=== PATIENT | female | born 1960 | race Hispanic/Latino ===

== ENCOUNTER → 2021-09-07 | Outpatient (CLI) | payer MEDICARE | END | disposition home or self-care (01) | LOC: EDUNIT# 08-24 11:00 → RAH 14:38 | PROVIDERS: ATTEND Internal Medicine | DX: Z12.31 Encounter for screening mammogram for malignant neoplasm of breast (principal) | CPT/HCPCS: 77067 ==

== ENCOUNTER → 2022-01-27 | Outpatient (CLI) | payer MEDICARE | END | disposition home or self-care (01) | LOC: RAH 13:03 | PROVIDERS: ATTEND Internal Medicine | DX: E04.1 Nontoxic single thyroid nodule (principal) | CPT/HCPCS: 76536 ==

== ENCOUNTER 2022-04-29 14:31 | Emergency (ER) | payer MEDICARE ==
[~2022-04-29] VITALS: Ht 160 cm; Wt 88.5 kg
[2022-04-29 14:32] VITALS: BP 154/63
[2022-04-29] MEDS ORDERED: HYDROCODONE/ACETAMINOPHEN 10/325 MG TAB PO ONE (15:00)
[2022-04-29] MEDS ORDERED: KETOROLAC 60 MG VIAL (30MG/ML) IM ONE (15:00)
[2022-04-29] MEDS ORDERED: TRAM1TAB2 PO (16:07)
[2022-04-29] MEDS ORDERED: TETANUS/DIPHTHERIA TOXOID [ADULT] 0.5 ML VIAL IM ONE (16:30)
== END 2022-04-29 17:04 | disposition home or self-care (01) ==
LOC: EDH 14:31
DX: S42.201A Unspecified fracture of upper end of right humerus, initial encounter for closed fracture (principal); S52.124A Nondisplaced fracture of head of right radius, initial encounter for closed fracture; F32.A Depression, unspecified; E11.9 Type 2 diabetes mellitus without complications; E78.00 Pure hypercholesterolemia, unspecified; I10 Essential (primary) hypertension; E66.9 Obesity, unspecified; Z68.34 Body mass index [BMI] 34.0-34.9, adult; Z90.49 Acquired absence of other specified parts of digestive tract; W19.XXXA Unspecified fall, initial encounter; Y93.89 Activity, other specified; Y92.89 Other specified places as the place of occurrence of the external cause; Y99.8 Other external cause status
CPT/HCPCS: 99284; 90714; 73080; 73090; 73060; 73030; 96372; 90471; J1885

== ENCOUNTER 2022-06-27 17:00 | Observation (INO) | payer MEDICARE ==
[~2022-06-27] VITALS: Ht 149.9 cm; Wt 89.1 kg
[~2022-06-27 17:00] MED LIST: TRAM1TAB2 PO
[2022-06-27 17:37] LABS: BASOPHILS % (AUTO) 0.2 % (0.0-5.0); EOSINOPHILS % (AUTO) 0.3 % (0.0-8.0); LYMPHOCYTES % (AUTO) 16.6 % (21.0-51.0); MEAN CORPUSCULAR HEMOGLOBIN 30.3 pg (27.0-33.0); MEAN CORPUSCULAR HGB CONC 34.1 g/dL (32.0-36.0); MEAN CORPUSCULAR VOLUME 88.9 fL (79-99); MONOCYTES % (AUTO) 6.7 % (3.0-13.0); NEUTROPHILS % (AUTO) 75.8 % (40.0-77.0); PLATELET COUNT (AUTO) 144 K/uL (130-400); RED CELL DISTRIBUTION WIDTH 13.7 % (11.0-15.5)
[2022-06-27 17:47] LABS: POTASSIUM 4.2 mmol/L (3.5-5.1)
[2022-06-27 17:54] LABS: ALBUMIN 3.4 g/dL (3.5-5.0); TOTAL PROTEIN, SERUM 7.6 g/dL (6.0-8.3)
[2022-06-27] MEDS ORDERED: FAMOTIDINE 20MG VIAL IV ONE (18:00)
[2022-06-27] MEDS ORDERED: MORPHINE 2 MG SYG IVP ONE (18:00)
[2022-06-27] MEDS ORDERED: 0.9%NACL 1000ML 1,000 ML IV ONE ×2 (18:00→19:30)
[2022-06-27] MEDS ORDERED: ONDANSETRON 4MG INJ IVP ONE (18:00)
[2022-06-27 18:37] LABS: INR 1.06 (0.85-1.15); PROTHROMBIN TIME 11.5 SEC (9.6-11.6)
[2022-06-27 18:38] LABS: PARTIAL THROMBOPLASTIN TIME 28.3 SEC (26.3-35.5)
[2022-06-27] MEDS ORDERED: LACTULOSE 20 GM/30 ML UDCUP PO ONE (19:00)
[2022-06-27 20:09] LABS: APPEARANCE,URINE CLEAR (CLEAR); BILIRUBIN,URINE NEGATIVE (NEGATIVE); COLOR,URINE LIGHT-YELLOW (YELLOW); GLUCOSE, URINE (UA) NEGATIVE (NEGATIVE); KETONES,URINE NEGATIVE (NEGATIVE); LEUKOCYTE ESTERASE ,URINE NEGATIVE Leu/uL (NEGATIVE); NITRATE,URINE NEGATIVE (NEGATIVE); OCCULT BLOOD,URINE NEGATIVE (NEGATIVE); PROTEIN,URINE NEGATIVE (NEGATIVE); UROBILINOGEN,URINE 0.2 mg/dL (0.2-1.0)
[2022-06-27 20:11] LABS: MUCUS,URINE RARE LPF (None Seen); RBC,URINE 0-1 /HPF (0-1); SQUAMOUS EPITHELIAL CELL,UR FEW /HPF (0-2); WBC,URINE 0-1 /HPF (0-1)
[2022-06-27] MEDS ORDERED: ONDANSETRON 4MG INJ IVP PRN (21:00)
[2022-06-27] MEDS: LACTULOSE 20 GM/30 ML UDCUP PO SCH (21:00)
[2022-06-27] MEDS: 0.9%NACL 1000ML 1,000 ML IV SCH (21:20)
[2022-06-27] MEDS ORDERED: POLY17PO4 PO (21:22)
[2022-06-27] MEDS ORDERED: SIMV-43 PO (21:22)
[2022-06-27] MEDS ORDERED: SERT-440 PO (21:22)
[2022-06-27] MEDS ORDERED: DOCU240C25 PO ×2 (21:22→21:24)
[2022-06-27] MEDS ORDERED: FAMO40TA7 PO (21:22)
[2022-06-27] MEDS ORDERED: TRAM50TA4 PO (21:22)
[2022-06-27] MEDS ORDERED: FLUT16H NS (21:22)
[2022-06-27] MEDS ORDERED: INSU200I4 SQ (21:22)
[2022-06-27] MEDS ORDERED: AMLO-258 PO (21:22)
[2022-06-27] MEDS ORDERED: PANT40GR PO (21:22)
[2022-06-27] MEDS ORDERED: SEMA1PEN3 SQ (21:22)
[2022-06-27] MEDS ORDERED: FOLI0.8C PO (21:22)
[2022-06-27] MEDS ORDERED: FERR-72 PO (21:22)
[2022-06-27] MEDS ORDERED: MAG/ALUM/SIMETH 30 ML UDCUP PO PRN (22:00)
[2022-06-27] MEDS ORDERED: 0.9%NACL 1000ML 1,000 ML IV SCH (22:00)
[2022-06-27] MEDS ORDERED: GLUCAGON 1MG KIT 1 MG ML IM PRN (22:00)
[2022-06-27] MEDS ORDERED: DEXTROSE 50%-WATER 50 ML DISP.SYRIN IV PRN (22:00)
[2022-06-27] MEDS ORDERED: POTASSIUM CHLORIDE 10MEQ/100ML 100 ML IV PRN ×2 (22:00)
[2022-06-27] MEDS ORDERED: MORPHINE 2 MG SYG IVP PRN (22:00)
[2022-06-27] MEDS ORDERED: POTASSIUM CHLORIDE 10% ELIXIR 20 MEQ/15 ML UDCUP PO PRN (22:00)
[2022-06-27] MEDS ORDERED: DiphenhydrAMINE HCL 50 MG/ML VIAL IV PRN (22:00)
[2022-06-27] MEDS ORDERED: KCL 20 MEQ ERTAB PO PRN (22:00)
[2022-06-27] MEDS ORDERED: ACETAMINOPHEN 325 MG TAB PO PRN (22:00)
[2022-06-27] MEDS ORDERED: MORPHINE 4 MG SYG IVP PRN (22:00)
[2022-06-27] MEDS ORDERED: LIDOCAINE HCL-MPF 1% 2ML VIAL IV PRN ×2 (22:00)
[2022-06-27] MEDS ORDERED: DIPHENHYDRAMINE HCL 25 MG CAPSULE PO PRN (22:00)
[2022-06-28] MEDS: LACTULOSE 20 GM/30 ML UDCUP PO SCH ×4 (03:28→21:11)
[2022-06-28 05:00] VITALS: BP 165/71
[2022-06-28] MEDS: INSULIN HUMULIN R 100 UNIT/ML 3ML SQ SCH ×4 (06:23→21:12)
[2022-06-28] MEDS: 0.9%NACL 1000ML 1,000 ML IV SCH ×2 (06:23→17:57)
[2022-06-28 06:24] LABS: BASOPHILS % (AUTO) 0.3 % (0.0-5.0); EOSINOPHILS % (AUTO) 0.5 % (0.0-8.0); HEMATOCRIT 31.1 % (36-48); LYMPHOCYTES % (AUTO) 23.2 % (21.0-51.0); MEAN CORPUSCULAR HEMOGLOBIN 30.8 pg (27.0-33.0); MEAN CORPUSCULAR HGB CONC 34.4 g/dL (32.0-36.0); MEAN CORPUSCULAR VOLUME 89.6 fL (79-99); MONOCYTES % (AUTO) 9.3 % (3.0-13.0); NEUTROPHILS % (AUTO) 66.4 % (40.0-77.0); PLATELET COUNT (AUTO) 110 K/uL (130-400); RED BLOOD CELL COUNT(AUTO) 3.47 MIL/uL (4.00-5.50); RED CELL DISTRIBUTION WIDTH 13.7 % (11.0-15.5); WHITE BLOOD COUNT (AUTO) 5.8 K/uL (4.8-10.8)
[2022-06-28] MEDS: INSULIN GLARGINE 100 UNITS/ML 10 ML VIAL SQ SCH ×2 (06:24→21:13)
[2022-06-28 06:37] LABS: ALBUMIN 3.1 g/dL (3.5-5.0); CREATININE 1.6 mg/dL (0.5-1.5); POTASSIUM 4.1 mmol/L (3.5-5.1); TOTAL PROTEIN, SERUM 7.1 g/dL (6.0-8.3)
[2022-06-28 07:55] VITALS: BP 133/74
[2022-06-28] MEDS: RIFAXIMIN 550 MG TABLET PO SCH ×2 (08:33→21:11)
[2022-06-28] MEDS ORDERED: FAMOTIDINE 20MG VIAL IV SCH (09:00)
[2022-06-28 11:03] VITALS: BP 129/73
[2022-06-28] MEDS: PANTOPRAZOLE 40 MG TAB DR PO SCH (14:57)
[2022-06-28 15:33] VITALS: BP 107/65
[2022-06-28 20:25] VITALS: BP 136/74
[2022-06-28] MEDS: ACETAMINOPHEN 325 MG TAB PO PRN (23:14)
[2022-06-28 23:25] VITALS: BP 130/68
[2022-06-29] MEDS: LACTULOSE 20 GM/30 ML UDCUP PO SCH ×3 (02:33→15:02)
[2022-06-29 03:52] VITALS: BP 137/69
[2022-06-29 04:59] LABS: HEMATOCRIT 29.2 % (36-48); MEAN CORPUSCULAR HEMOGLOBIN 30.7 pg (27.0-33.0); MEAN CORPUSCULAR HGB CONC 33.9 g/dL (32.0-36.0); MEAN CORPUSCULAR VOLUME 90.7 fL (79-99); RED BLOOD CELL COUNT(AUTO) 3.22 MIL/uL (4.00-5.50); RED CELL DISTRIBUTION WIDTH 13.4 % (11.0-15.5); WHITE BLOOD COUNT (AUTO) 6.5 K/uL (4.8-10.8)
[2022-06-29 05:09] LABS: CREATININE 1.5 mg/dL (0.5-1.5)
[2022-06-29] MEDS: INSULIN HUMULIN R 100 UNIT/ML 3ML SQ SCH ×2 (06:35→12:00)
[2022-06-29] MEDS: INSULIN GLARGINE 100 UNITS/ML 10 ML VIAL SQ SCH (07:30)
[2022-06-29 07:54] VITALS: BP 145/74
[2022-06-29] MEDS: RIFAXIMIN 550 MG TABLET PO SCH (08:51)
[2022-06-29] MEDS: PANTOPRAZOLE 40 MG TAB DR PO SCH (08:51)
[2022-06-29 10:24] VITALS: BP 140/61
[2022-06-29] MEDS ORDERED: INSU200I4 SQ (14:21)
[2022-06-29] MEDS ORDERED: AMLO-258 PO (14:21)
[2022-06-29] MEDS ORDERED: RIFA550T PO (14:26)
[2022-06-29] MEDS ORDERED: LACT10SO5 PO (14:26)
[2022-06-29] MEDS: ACETAMINOPHEN 325 MG TAB PO PRN (15:02)
[2022-06-29 15:27] VITALS: BP 134/91
== END 2022-06-29 18:35 | disposition home or self-care (01) ==
LOC: EDH 17:00 → EDHIP 20:46 → 3CH 06-28 04:25
PROVIDERS: ADMIT Internal Medicine; ATTEND Internal Medicine
DX: E86.0 Dehydration (principal); E11.65 Type 2 diabetes mellitus with hyperglycemia; I12.9 Hypertensive chronic kidney disease with stage 1 through stage 4 chronic kidney disease, or unspecified chronic kidney disease; E11.22 Type 2 diabetes mellitus with diabetic chronic kidney disease; N18.30 Chronic kidney disease, stage 3 unspecified; D63.1 Anemia in chronic kidney disease; E78.2 Mixed hyperlipidemia; K21.9 Gastro-esophageal reflux disease without esophagitis; E66.01 Morbid (severe) obesity due to excess calories; F32.0 Major depressive disorder, single episode, mild; K74.60 Unspecified cirrhosis of liver; I85.00 Esophageal varices without bleeding; K76.6 Portal hypertension; M19.90 Unspecified osteoarthritis, unspecified site; D61.818 Other pancytopenia; G25.0 Essential tremor; E78.00 Pure hypercholesterolemia, unspecified; D50.9 Iron deficiency anemia, unspecified; E04.1 Nontoxic single thyroid nodule; K76.82 Hepatic encephalopathy; K85.90 Acute pancreatitis without necrosis or infection, unspecified; N17.0 Acute kidney failure with tubular necrosis; Z79.4 Long term (current) use of insulin; Z79.899 Other long term (current) drug therapy; Z90.49 Acquired absence of other specified parts of digestive tract; Z68.39 Body mass index [BMI] 39.0-39.9, adult; Z96.611 Presence of right artificial shoulder joint
CPT/HCPCS: 96374; 96361 ×2; 96375 ×2; 99285; 84484; 80053 ×2; 82140 ×3; 83690 ×3; 85025 ×2; 85610; 85730; 87040 ×2; 87088; 81001; 36415 ×3; 71045; 74176; 93005; 96376; 82948 ×9; 97161; 97039 ×3; 80048; 85027; G0378 ×44; J3490 ×2; J7030 ×2; J2405 ×2; J1815 ×2; J7070; J2270

== ENCOUNTER → 2022-07-10 | Outpatient (CLI) | payer MEDICARE ==
[~2022-07-10] MED LIST changes: +AMLO-258 PO; +DOCU240C25 PO; +FAMO40TA7 PO; +FERR-72 PO; +FLUT16H NS; +FOLI0.8C PO; +INSU200I4 SQ; +LACT10SO5 PO; +PANT40GR PO; +POLY17PO4 PO; +RIFA550T PO; +SEMA1PEN3 SQ; +SERT-440 PO; +SIMV-43 PO; -TRAM1TAB2 PO
== END | disposition home or self-care (01) ==
LOC: LAB 08:01
PROVIDERS: ATTEND Internal Medicine
DX: K74.60 Unspecified cirrhosis of liver (principal)
CPT/HCPCS: 36415; 82140

== ENCOUNTER → 2022-08-31 | Outpatient (CLI) | payer MEDICARE ==
[2022-08-31 09:23] LABS: BASOPHILS % (AUTO) 0.4 % (0.0-5.0); EOSINOPHILS % (AUTO) 1.5 % (0.0-8.0); HEMATOCRIT 27.6 % (36-48); LYMPHOCYTES % (AUTO) 23.5 % (21.0-51.0); MEAN CORPUSCULAR VOLUME 84.9 fL (79-99); MONOCYTES % (AUTO) 5.8 % (3.0-13.0); NEUTROPHILS % (AUTO) 68.6 % (40.0-77.0); PLATELET COUNT (AUTO) 110 K/uL (130-400); RED BLOOD CELL COUNT(AUTO) 3.25 MIL/uL (4.00-5.50); RED CELL DISTRIBUTION WIDTH 13.8 % (11.0-15.5); WHITE BLOOD COUNT (AUTO) 5.2 K/uL (4.8-10.8)
[2022-08-31 09:31] LABS: HEMOGLOBIN A1C 10.4 % (4.0-6.0)
[2022-08-31 09:33] LABS: INR 1.04 (0.85-1.15); PROTHROMBIN TIME 11.3 SEC (9.6-11.6)
[2022-08-31 09:34] LABS: PARTIAL THROMBOPLASTIN TIME 29.3 SEC (26.3-35.5)
[2022-08-31 09:45] LABS: ALBUMIN 3.2 g/dL (3.5-5.0); CREATININE 1.3 mg/dL (0.5-1.5); POTASSIUM 3.9 mmol/L (3.5-5.1); THYROID STIMULATING HORMONE 1.88 uIU/mL (0.36-3.74); TOTAL PROTEIN, SERUM 7.2 g/dL (6.0-8.3)
[2022-08-31 09:45] LABS: APPEARANCE,URINE CLOUDY (CLEAR); BILIRUBIN,URINE NEGATIVE (NEGATIVE); COLOR,URINE YELLOW (YELLOW); GLUCOSE, URINE (UA) >=1000 mg/dL (NEGATIVE); KETONES,URINE NEGATIVE (NEGATIVE); LEUKOCYTE ESTERASE ,URINE 250 Leu/uL (NEGATIVE); NITRATE,URINE NEGATIVE (NEGATIVE); OCCULT BLOOD,URINE NEGATIVE (NEGATIVE); PROTEIN,URINE 30 mg/dL (NEGATIVE)
[2022-08-31 10:05] LABS: BACTERIA,URINE FEW /HPF (None Seen); MUCUS,URINE RARE LPF (None Seen); RBC,URINE 0-1 /HPF (0-1); SQUAMOUS EPITHELIAL CELL,UR MOD /HPF (0-2); WBC,URINE 26-50 /HPF (0-1)
== END | disposition home or self-care (01) ==
LOC: LAB 08:37
PROVIDERS: ATTEND Internal Medicine
DX: I12.9 Hypertensive chronic kidney disease with stage 1 through stage 4 chronic kidney disease, or unspecified chronic kidney disease (principal); K21.9 Gastro-esophageal reflux disease without esophagitis; E78.2 Mixed hyperlipidemia; I85.00 Esophageal varices without bleeding; D61.818 Other pancytopenia; D69.6 Thrombocytopenia, unspecified; K74.60 Unspecified cirrhosis of liver; D50.9 Iron deficiency anemia, unspecified; E11.43 Type 2 diabetes mellitus with diabetic autonomic (poly)neuropathy; Z79.899 Other long term (current) drug therapy
CPT/HCPCS: 36415; 80053; 81001; 82043; 83036; 84443; 85025; 85610; 85730; 87088

== ENCOUNTER 2022-10-09 19:41 | Emergency (ER) | payer MEDICARE ==
[~2022-10-09] VITALS: Ht 157.5 cm; Wt 88.5 kg
[2022-10-09 22:24] LABS: BASOPHILS % (AUTO) 0.3 % (0.0-5.0); EOSINOPHILS % (AUTO) 0.6 % (0.0-8.0); HEMATOCRIT 24.9 % (36-48); LYMPHOCYTES % (AUTO) 20.1 % (21.0-51.0); MEAN CORPUSCULAR HEMOGLOBIN 34.6 pg (27.0-33.0); MEAN CORPUSCULAR HGB CONC 36.9 g/dL (32.0-36.0); MEAN CORPUSCULAR VOLUME 93.6 fL (79-99); MONOCYTES % (AUTO) 6.5 % (3.0-13.0); NEUTROPHILS % (AUTO) 72.1 % (40.0-77.0); PLATELET COUNT (AUTO) 122 K/uL (130-400); RED BLOOD CELL COUNT(AUTO) 2.66 MIL/uL (4.00-5.50); WHITE BLOOD COUNT (AUTO) 7.3 K/uL (4.8-10.8)
[2022-10-09 22:34] LABS: CREATININE 1.9 mg/dL (0.5-1.5); POTASSIUM 3.6 mmol/L (3.5-5.1)
[2022-10-09 22:39] LABS: ALBUMIN 3.4 g/dL (3.5-5.0); TOTAL PROTEIN, SERUM 7.5 g/dL (6.0-8.3)
[2022-10-09 22:39] LABS: APPEARANCE,URINE CLEAR (CLEAR); BILIRUBIN,URINE NEGATIVE (NEGATIVE); GLUCOSE, URINE (UA) NEGATIVE (NEGATIVE); KETONES,URINE NEGATIVE (NEGATIVE); LEUKOCYTE ESTERASE ,URINE NEGATIVE Leu/uL (NEGATIVE); NITRATE,URINE NEGATIVE (NEGATIVE); OCCULT BLOOD,URINE NEGATIVE (NEGATIVE); PH,URINE 6.5 (5.0-8.0); PROTEIN,URINE NEGATIVE (NEGATIVE); UROBILINOGEN,URINE 0.2 mg/dL (0.2-1.0)
[2022-10-09 22:43] LABS: COLOR,URINE Light-Yellow (YELLOW)
[2022-10-09] MEDS ORDERED: 0.9%NACL 1000ML 1,000 ML IV ONE (23:30)
[2022-10-10 00:54] VITALS: BP 135/61
== END 2022-10-10 01:23 | disposition home or self-care (01) ==
LOC: EDH 19:41
DX: R51.9 Headache, unspecified (principal); E11.9 Type 2 diabetes mellitus without complications; E66.9 Obesity, unspecified; E78.00 Pure hypercholesterolemia, unspecified; I10 Essential (primary) hypertension; R42 Dizziness and giddiness; Z79.4 Long term (current) use of insulin; Z79.899 Other long term (current) drug therapy; Z90.49 Acquired absence of other specified parts of digestive tract; Z68.35 Body mass index [BMI] 35.0-35.9, adult
CPT/HCPCS: 99285; 84484; 80053; 85025; 81003; 36415; 71045; 70450; 96360; 96361; 93005; J7030

== ENCOUNTER → 2022-11-17 | Outpatient (CLI) | payer MEDICARE | END | disposition home or self-care (01) | LOC: RAH 09:52 | PROVIDERS: ATTEND Internal Medicine | DX: E04.1 Nontoxic single thyroid nodule (principal) | CPT/HCPCS: 76536 ==

== ENCOUNTER → 2022-12-28 | Outpatient (CLI) | payer MEDICARE | END | disposition home or self-care (01) | LOC: RAH 14:20 | PROVIDERS: ATTEND Internal Medicine | DX: Z12.31 Encounter for screening mammogram for malignant neoplasm of breast (principal) | CPT/HCPCS: 77067 ==

== ENCOUNTER → 2023-06-25 | Outpatient (CLI) | payer MEDICARE | END | disposition home or self-care (01) | LOC: RAH 14:47 | PROVIDERS: ATTEND Internal Medicine | DX: R05.3 Chronic cough (principal) | CPT/HCPCS: 71047 ==

== ENCOUNTER → 2024-03-25 | Outpatient (CLI) | payer MEDICARE | END | disposition home or self-care (01) | LOC: RAH 16:40 | PROVIDERS: ATTEND Internal Medicine Nephrology | DX: M47.816 Spondylosis without myelopathy or radiculopathy, lumbar region (principal); M54.9 Dorsalgia, unspecified | CPT/HCPCS: 72114 ==

== ENCOUNTER → 2024-04-07 | Outpatient (CLI) | payer MEDICARE ==
[2024-04-07 14:50] LABS: BASOPHILS # (AUTO) 0.02 K/uL (0.00-0.20); BASOPHILS % (AUTO) 0.6 % (0.0-5.0); EOSINOPHILS # (AUTO) 0.04 K/uL (0.00-0.70); EOSINOPHILS % (AUTO) 1.2 % (0.0-8.0); HEMATOCRIT 34.5 % (36-48); IMMATURE GRANULOCYTE ABSOLUTE 0.01 K/uL (0-1); LYMPHOCYTES % (AUTO) 29.6 % (21.0-51.0); MEAN CORPUSCULAR HGB CONC 33.6 g/dL (32.0-36.0); MONOCYTES # (AUTO) 0.3 K/uL (0.1-1.0); MONOCYTES % (AUTO) 8.9 % (3.0-13.0); NEUTROPHILS % (AUTO) 59.4 % (40.0-77.0); PLATELET COUNT (AUTO) 77 K/uL (130-400); RED BLOOD CELL COUNT(AUTO) 3.63 MIL/uL (4.00-5.50); WHITE BLOOD COUNT (AUTO) 3.4 K/uL (4.8-10.8)
[2024-04-07 14:59] LABS: APPEARANCE,URINE CLEAR (CLEAR); BILIRUBIN,URINE NEGATIVE (NEGATIVE); COLOR,URINE COLORLESS (YELLOW); GLUCOSE, URINE (UA) >=1000 mg/dL (NEGATIVE); KETONES,URINE NEGATIVE (NEGATIVE); LEUKOCYTE ESTERASE ,URINE NEGATIVE Leu/uL (NEGATIVE); NITRATE,URINE NEGATIVE (NEGATIVE); OCCULT BLOOD,URINE NEGATIVE (NEGATIVE); PH,URINE 6.5 (5.0-8.0); PROTEIN,URINE NEGATIVE (NEGATIVE); UROBILINOGEN,URINE 0.2 mg/dL (0.2-1.0)
[2024-04-07 15:00] LABS: ADD UA MICROSCOPIC YES
[2024-04-07 15:04] LABS: BILIRUBIN,TOTAL 1.1 mg/dL (0.2-1.0); CREATININE 1.9 mg/dL (0.5-1.0); MAGNESIUM 1.8 mg/dL (1.80-2.40); POTASSIUM 3.8 mmol/L (3.5-5.1); TOTAL PROTEIN, SERUM 6.5 g/dL (6.0-8.3)
[2024-04-07 15:38] LABS: BACTERIA,URINE RARE /HPF (None Seen); MUCUS,URINE RARE LPF (None Seen); RBC,URINE 0-1 /HPF (0-1); SQUAMOUS EPITHELIAL CELL,UR FEW /HPF (0-2)
== END | disposition home or self-care (01) ==
LOC: LAB 13:54
PROVIDERS: ATTEND Internal Medicine Nephrology
DX: I10 Essential (primary) hypertension (principal); K74.60 Unspecified cirrhosis of liver; R94.4 Abnormal results of kidney function studies
CPT/HCPCS: 36415; 80053; 81001; 82140; 82570; 83735; 84100; 84156; 85025

== ENCOUNTER 2024-04-22 10:26 | Emergency (ER) | payer MEDICARE ==
[~2024-04-22] VITALS: Ht 157.5 cm; Wt 93.4 kg
[2024-04-22 11:06] LABS: CREATININE 1.4 mg/dL (0.5-1.0); POTASSIUM 4.2 mmol/L (3.5-5.1)
[2024-04-22 11:18] LABS: MEAN CORPUSCULAR HEMOGLOBIN 42.5 pg (27.0-33.0); MEAN CORPUSCULAR HGB CONC 43.9 g/dL (32.0-36.0); MEAN CORPUSCULAR VOLUME 96.9 fL (79-99); PLATELET COUNT (AUTO) 77 K/uL (130-400); RED CELL DISTRIBUTION WIDTH 18.1 % (11.0-15.5); WHITE BLOOD COUNT (AUTO) 3.4 K/uL (4.8-10.8)
[2024-04-22] MEDS: LACTULOSE 20 GM/30 ML UDCUP PO ONE (12:50)
[2024-04-22] MEDS: 0.9%NACL 1000ML 1,000 ML IV ONE (12:50)
[2024-04-22 14:43] VITALS: BP 139/66; PULSE 70; RESP 14; O2SAT 99
== END 2024-04-22 14:44 | disposition home or self-care (01) ==
LOC: EDH 10:26
DX: K76.82 Hepatic encephalopathy (principal); E72.20 Disorder of urea cycle metabolism, unspecified; E11.9 Type 2 diabetes mellitus without complications; E66.9 Obesity, unspecified; H40.9 Unspecified glaucoma; F32.A Depression, unspecified; Z79.4 Long term (current) use of insulin; Z79.899 Other long term (current) drug therapy; Z90.49 Acquired absence of other specified parts of digestive tract; Z98.890 Other specified postprocedural states
CPT/HCPCS: 99283; 96360; 80048; 82140; 85027; 36415; J7030

== ENCOUNTER → 2024-04-24 | Outpatient (CLI) | payer MEDICARE ==
[2024-04-24 09:56] LABS: INR 1.1 (0.85-1.15); PROTHROMBIN TIME 11.8 SEC (9.6-11.6)
[2024-04-24 10:03] LABS: ALBUMIN 3.1 g/dL (3.5-5.0); BILIRUBIN,TOTAL 1.4 mg/dL (0.2-1.0); CREATININE 1.7 mg/dL (0.5-1.0); POTASSIUM 4.6 mmol/L (3.5-5.1); TOTAL PROTEIN, SERUM 6.8 g/dL (6.0-8.3)
[2024-04-24 10:46] LABS: BASOPHILS # (AUTO) 0.02 K/uL (0.00-0.20); BASOPHILS % (AUTO) 0.6 % (0.0-5.0); EOSINOPHILS # (AUTO) 0.06 K/uL (0.00-0.70); EOSINOPHILS % (AUTO) 1.7 % (0.0-8.0); HEMATOCRIT 37.6 % (36-48); IMMATURE GRANULOCYTE ABSOLUTE 0.01 K/uL (0-1); LYMPHOCYTES # (AUTO) 1.2 K/uL (1.0-4.8); LYMPHOCYTES % (AUTO) 33.2 % (21.0-51.0); MEAN CORPUSCULAR HEMOGLOBIN 31.9 pg (27.0-33.0); MEAN CORPUSCULAR HGB CONC 33.2 g/dL (32.0-36.0); MEAN CORPUSCULAR VOLUME 95.9 fL (79-99); MONOCYTES # (AUTO) 0.3 K/uL (0.1-1.0); MONOCYTES % (AUTO) 9.2 % (3.0-13.0); NEUTROPHILS # (AUTO) 1.9 K/uL (1.8-7.7); PLATELET COUNT (AUTO) 62 K/uL (130-400); RED BLOOD CELL COUNT(AUTO) 3.92 MIL/uL (4.00-5.50); RED CELL DISTRIBUTION WIDTH 16.7 % (11.0-15.5); WHITE BLOOD COUNT (AUTO) 3.5 K/uL (4.8-10.8)
== END | disposition home or self-care (01) ==
LOC: LAB 08:43
PROVIDERS: ATTEND Internal Medicine Gastroenterology
DX: K74.69 Other cirrhosis of liver (principal)
CPT/HCPCS: 36415; 80053; 85025; 85610

== ENCOUNTER 2024-05-24 18:39 | Emergency (ER) | payer MEDICARE ==
[~2024-05-24] VITALS: Ht 154.9 cm; Wt 90.7 kg
[2024-05-24 19:08] VITALS: TEMP 97.8
[2024-05-24 19:13] LABS: BASOPHILS # (AUTO) 0.01 K/uL (0.00-0.20); BASOPHILS % (AUTO) 0.3 % (0.0-5.0); EOSINOPHILS # (AUTO) 0.05 K/uL (0.00-0.70); EOSINOPHILS % (AUTO) 1.4 % (0.0-8.0); HEMATOCRIT 35.3 % (36-48); IMMATURE GRANULOCYTE ABSOLUTE 0.01 K/uL (0-1); LYMPHOCYTES # (AUTO) 1.3 K/uL (1.0-4.8); LYMPHOCYTES % (AUTO) 35.1 % (21.0-51.0); MEAN CORPUSCULAR HGB CONC 35.1 g/dL (32.0-36.0); MEAN CORPUSCULAR VOLUME 99.7 fL (79-99); MONOCYTES # (AUTO) 0.3 K/uL (0.1-1.0); MONOCYTES % (AUTO) 8.6 % (3.0-13.0); NEUTROPHILS % (AUTO) 54.3 % (40.0-77.0); PLATELET COUNT (AUTO) 70 K/uL (130-400); RED BLOOD CELL COUNT(AUTO) 3.54 MIL/uL (4.00-5.50); RED CELL DISTRIBUTION WIDTH 14.5 % (11.0-15.5); WHITE BLOOD COUNT (AUTO) 3.7 K/uL (4.8-10.8)
[2024-05-24 19:28] LABS: CREATININE 1.8 mg/dL (0.5-1.0)
[2024-05-24 19:34] LABS: B-TYPE NATRIURETIC PEPTIDE 68 pg/mL (0-100)
[2024-05-24 19:36] LABS: ALBUMIN 3.1 g/dL (3.5-5.0); BILIRUBIN,DIRECT 0.5 mg/dL (0.0-0.3); BILIRUBIN,TOTAL 1.6 mg/dL (0.2-1.0); TOTAL PROTEIN, SERUM 6.8 g/dL (6.0-8.3)
[2024-05-24] MEDS: LACTULOSE 20 GM/30 ML UDCUP PO ONE (20:57)
[2024-05-24] MEDS: DEXTROSE 50%-WATER 50 ML DISP.SYRIN IV ONE ×2 (20:57→21:09)
[2024-05-24 23:04] VITALS: BP 117/50; PULSE 68; RESP 18; O2SAT 100
== END 2024-05-24 23:09 | disposition left against medical advice (07) ==
LOC: EDH 18:39
DX: E72.20 Disorder of urea cycle metabolism, unspecified (principal); I12.9 Hypertensive chronic kidney disease with stage 1 through stage 4 chronic kidney disease, or unspecified chronic kidney disease; E11.22 Type 2 diabetes mellitus with diabetic chronic kidney disease; N18.9 Chronic kidney disease, unspecified; M79.662 Pain in left lower leg; M79.661 Pain in right lower leg; E11.649 Type 2 diabetes mellitus with hypoglycemia without coma; F32.A Depression, unspecified; E66.9 Obesity, unspecified; Z79.4 Long term (current) use of insulin; Z79.85 Long-term (current) use of injectable non-insulin antidiabetic drugs; Z79.899 Other long term (current) drug therapy; Z90.49 Acquired absence of other specified parts of digestive tract; Z68.37 Body mass index [BMI] 37.0-37.9, adult
CPT/HCPCS: 99285; 93970; 96365; 71045; 96366; 80076; 84484; 80048; 83880; 82140; 85025; 82948 ×3; 36415; 93005; J7070

== ENCOUNTER → 2024-05-30 | Outpatient (CLI) | payer MEDICARE | END | disposition home or self-care (01) | LOC: LAB 14:23 | PROVIDERS: ATTEND Internal Medicine Gastroenterology | DX: K74.69 Other cirrhosis of liver (principal) | CPT/HCPCS: 36415; 82105 ==

== ENCOUNTER 2024-06-08 07:41 | Emergency (ER) | payer MEDICARE ==
[~2024-06-08] VITALS: Ht 154.9 cm; Wt 91.2 kg
[2024-06-08 07:42] VITALS: TEMP 98.3
[2024-06-08] MEDS: ibuPROFEN 600 MG TABLET PO ONE (08:34)
[2024-06-08] MEDS: morPHINE 4 MG SYG IM ONE (09:12)
[2024-06-08] MEDS ORDERED: ACET-2079 PO (11:26)
[2024-06-08 12:03] VITALS: BP 110/50; PULSE 73; RESP 16; O2SAT 98
== END 2024-06-08 12:06 | disposition home or self-care (01) ==
LOC: EDH 07:41
DX: M25.511 Pain in right shoulder (principal); I12.9 Hypertensive chronic kidney disease with stage 1 through stage 4 chronic kidney disease, or unspecified chronic kidney disease; E11.22 Type 2 diabetes mellitus with diabetic chronic kidney disease; N18.9 Chronic kidney disease, unspecified; E66.9 Obesity, unspecified; F32.A Depression, unspecified; Z79.4 Long term (current) use of insulin; Z79.85 Long-term (current) use of injectable non-insulin antidiabetic drugs; Z79.899 Other long term (current) drug therapy; Z90.49 Acquired absence of other specified parts of digestive tract; Z98.890 Other specified postprocedural states
CPT/HCPCS: 99283; 73030; 96372; J2270

== ENCOUNTER → 2024-06-12 | Outpatient (CLI) | payer MEDICARE ==
[~2024-06-12] MED LIST changes: +ACET-2079 PO
== END | disposition home or self-care (01) ==
LOC: RAH 14:46
PROVIDERS: ATTEND Internal Medicine Nephrology
DX: R93.6 Abnormal findings on diagnostic imaging of limbs (principal)
CPT/HCPCS: 73562

== ENCOUNTER 2024-09-17 10:51 | Emergency (ER) | payer MEDICARE ==
[~2024-09-17] VITALS: Ht 157.5 cm; Wt 95.3 kg
[~2024-09-17 10:51] MED LIST changes: +CYAN250010 PO; +DAPA10TA PO; +FURO40TA5 PO; +INSU100I24 SQ; +INSU100I32 SQ; -LACT10SO5 PO; +LACT10SO9 PO; +NADO20TA36 PO; -PANT40GR PO; +PANT40TA54 PO; +SPIR50TA5 PO
--- NOTE | 2024-09-17 11:23 | ERN ---
ED Note History of Present Illness Stated Complaint: SEVERE BACK PAIN Chief Complaint: Back Pain-No Injury Time Seen by MD: 10:59 Dictation: PATIENT IS A 63-YEAR-OLD FEMALE COMING IN TODAY WITH RIGHT POSTERIOR SHOULDER AND BACK PAIN SHE HAS HAD FOR 7-8 DAYS. NO FEVER NO CHILLS NO NAUSEA VOMITING NO COUGH. SHE DOES HAVE A HISTORY OF CIRRHOSIS OF THE LIVER HYPERTENSION AND GASTROPARESIS. SAW HER PRIMARY CARE DOCTOR 2-3 DAYS AGO WHO SWABBED HER FOR FLU AND COVID TOLD HER EVERYTHING WAS FINE AND TO FOLLOW UP WITH THE EMERGENCY ROOM IF SHE GOT WORSE. Allergies: Coded Allergies: No Known Drug Allergies (Unverified Allergy, Unknown, 06/27/22) Home Meds Active Scripts Acetaminophen with Codeine (Acetaminophen-Cod #3 Tablet) 300 Mg-30 Mg Tablet, 1- 2 TAB PO Q4H PRN for PAIN, #20 TAB 0 Refills Prov:KRISS MCINTOSH MD 06/08/24 Rifaximin (Xifaxan) 550 Mg Tablet, 550 MG PO BID, #60 TAB 4 Refills Prov:KATHIA SAMPSON MD 06/29/22 Insulin Degludec (Tresiba Flextouch U-200) 200 Unit/1 Ml Insuln.pen, 45 UNIT SQ BID, #30 SYRINGE 1 Refill Prov:KATHIA SAMPSON MD 06/29/22 Amlodipine Besylate (Amlodipine Besylate) 10 Mg Tablet, 5 MG PO DAILY for 30 Days, #30 TAB 0 Refills Prov:KATHIA SAMPSON MD 06/29/22 Docusate Calcium (Surfak 240 mg Cap) 240 Mg Cap, 240 MG PO BID, #30 CAP 1 Refill Prov:KATHIA SAMPSON MD 06/27/22 Simvastatin (Simvastatin) 20 Mg Tablet, 20 MG PO DAILY, #30 TAB 1 Refill Prov:KATHIA SAMPSON MD 06/27/22 Sertraline HCl (Sertraline HCl) 100 Mg Tablet, 100 MG PO DAILY, #30 TAB 1 Refill Prov:KATHIA SAMPSON MD 06/27/22 Semaglutide (Ozempic) 1 Mg/0.75 Ml Pen.injctr, 1 MG SQ QWEEK, #30 EA 1 Refill Prov:KATHIA SAMPSON MD 06/27/22 Polyethylene Glycol 3350 (Miralax) 17 Gm Powd.pack, 17 GM PO DAILY, #30 EA Prov:KATHIA SAMPSON MD 06/27/22 Folic Acid (Folic Acid) 0.8 Mg Capsule, 1 MG PO DAILY, #30 CAP 1 Refill Prov:KATHIA SAMPSON MD 06/27/22 Fluticasone Propionate (Fluticasone Propionate) 16 Gm [place].susp, 16 GM NS DAILY PRN for NASAL CONGESTION, #30 EA 1 Refill Prov:KATHIA SAMPSON MD 06/27/22 Ferrous Sulfate (Ferrous Sulfate) 325 Mg Tablet, 325 MG PO DAILY, #30 TAB 1 Refill Prov:KATHIA SAMPSON MD 06/27/22 Famotidine (Famotidine) 40 Mg Tablet, 40 MG PO DAILY, #30 TAB 1 Refill Prov:KATHIA SAMPSON MD 06/27/22 Reported Medications Lactulose (Lactulose) 20 Gram/30 Ml Solution, 20 GM PO TID, ML 07/07/24 Nadolol (Nadolol) 20 Mg Tablet, 1 TAB PO DAILY for 30 Days, #30 TAB 0 Refills 07/04/24 Pantoprazole Sodium (Pantoprazole Sodium) 40 Mg Tablet.dr, 1 TAB PO DAILY for 30 Days, #30 TAB 0 Refills 07/04/24 Furosemide (Furosemide) 40 Mg Tablet, 1 TAB PO DAILY for 30 Days, #30 TAB 0 Refills 07/04/24 Dapagliflozin Propanediol (Farxiga) 10 Mg Tablet, 1 TAB PO DAILY for 30 Days, #30 TAB 0 Refills 07/04/24 Cyanocobalamin (Vitamin B-12) (Vitamin B12) 2,500 Mcg Tablet, 1000 MCG PO DAILY, TAB 07/04/24 Spironolactone (Spironolactone) 50 Mg Tablet, 50 MG PO BID, TAB 07/04/24 Insulin Degludec (Tresiba Flextouch U-100) 100 Unit/Ml (3 Ml) Insuln.pen, 50 UNIT SQ DAILY, SYRINGE 07/04/24 Insulin Aspart (Niacinamide) (Fiasp 100 Unit/ml Flextouch) 100 Unit/Ml (3 Ml) Insuln.pen, 10 UNIT SQ ACHS, SYRINGE 07/04/24 Past Medical History Past Medical History: Diabetes-Type II, High Cholesterol, Hypertension Additional Past Medical Hx: Obesity Surgical History: Cholecystectomy, Other Surgical History Other: SHOULDER REPLACEMENT Family History: Negative Social History: Negative History: Not Applicable RN Note Reviewed/Agreed w/PFSH: Yes Review of System Dictation CONSTITUTIONAL: NEGATIVE EXCEPT FOR HPI HEAD/FACE: NEGATIVE EXCEPT FOR HPI EENT: NEGATIVE EXCEPT FOR HPI RESPIRATORY: NEGATIVE EXCEPT FOR HPI GASTROINTESTINAL/ABDOMINAL: NEGATIVE EXCEPT FOR HPI RIGHT LATERAL AN UPPER QUADRANT PAIN TENDERNESS GENITOURINARY: NEGATIVE EXCEPT FOR HPI MUSCULOSKELETAL: NEGATIVE EXCEPT FOR HPI INTEGUMENTARY: NEGATIVE EXCEPT FOR HPI NEUROLOGICAL/PSYCH: NEGATIVE EXCEPT FOR HPI HEMATOLOGIC/LYMPHATIC: NEGATIVE EXCEPT FOR HPI ALL SYSTEMS NEGATIVE, EXCEPT NOTED ABOVE. 13 POINT REVIEW OF SYSTEMS ASSESSED AND ALL NEGATIVE EXCEPT FOR ABOVE. Initial Vital Sign VS Vital Signs Date Time Temp Pulse Resp B/P (MAP) Pulse Ox O2 Delivery O2 Flow Rate FiO2 09/17/24 10:55 97.9 89 18 129/54 97 Room Air 0 09/17/24 10:55 21 Physical Exam Dictation VITAL SIGNS REVIEWED GENERAL APPEARANCE: ALERT, ORIENTED X 3, NO ACUTE DISTRESS, WELL DEVELOPED, NOURISHED. HEAD AND FACE: NON-TRAUMATIC. EYES: PERRL, ICTERIC SCLERA, EYELID NO TRAUMA, ANTERIOR CHAMBER WITH ARCUS SENILIS. EARS: PINNAS INTACT AND NO SIGNS OF TRAUMA OR ERYTHEMA EAR CANALS CLEAR AND NO DISCHARGE TM NO ERYTHEMA NOSE: NO DISCHARGE, NO BLEEDING. OROPHARYNX: MOUTH NORMAL, TONGUE PINK, PHARYNX CLEAR,NO ERYTHEMA, TONSILS NO EXUDATES, NO ABSCESSES NOTED, MUCOUS MEMBRANE MOIST NECK: SUPPLE, NON-TENDER, NO THYROMEGALY, NO MASSES, NO JVD, NO BRUITS BREAST:DEFERRED CHEST:NO TENDERNESS, NO CREPITUS, NO PARADOXICAL MOVEMENT, NO RETRACTIONS LUNGS:CLEAR, WELL-VENTILATED, SYMMETRIC, NO RALES, NO WHEEZING, NO RHONCHI, NO STRIDOR, GOOD BREATH SOUNDS BILATERALLY HEART: REGULAR RATE, REGULAR RHYTHM, NO MURMUR, NO GALLOPS VASCULAR: NO PERIPHERAL EDEMA, ABDOMEN: SOFT, POSITIVE BOWEL SOUNDS, NONDISTENDED, NO GUARDING, MODERATE RIGHT UPPER QUADRANT AND LATERAL ABDOMINAL WALL TENDERNESS, NO REBOUND, NO MASSES NO HEPATOMEGALY, NO SPLENOMEGALY, NO CARLSON'S SIGN, NO HERNIAS. RECTAL: DEFERRED GENITAL: DEFERRED NEUROLOGICAL: NORMAL SPEECH, MOTOR FUNCTION INTACT, SENSORY FUNCTION INTACT MUSCULOSKELETAL: NECK NONTENDER, FULL RANGE OF MOTION, BACK NONTENDER, FULL RANGE OF MOTION, EXTREMITIES: NONTENDER, FULL RANGE OF MOTION SKIN: COLOR PINK, DRY, NO TURGOR, NO RASH, NO LACERATIONS, NO ABRASIONS, NO CONTUSIONS. LYMPHATIC: DEFERRED Results (Laboratory/Radiology) Laboratory/Radiology Laboratory Tests Test 09/17/24 11:40 09/17/24 12:09 White Blood Count 4.2 K/uL (4.8-10.8) L Red Blood Count 3.64 MIL/uL (4.00-5.50) L Hemoglobin 12.5 g/dL (12.0-16.0) Hematocrit 36.4 % (36-48) Mean Corpuscular Volume 100.0 fL (79-99) H Mean Corpuscular Hemoglobin 34.3 pg (27.0-33.0) H Mean Corpuscular Hemoglobin Concent 34.3 g/dL (32.0-36.0) Red Cell Distribution Width 14.5 % (11.0-15.5) Platelet Count 55 K/uL (130-400) L Mean Platelet Volume 11.7 fL (7.5-10.5) H Immature Granulocyte % (Auto) 0.7 % (0-1) Neutrophils (%) (Auto) 64.0 % (40.0-77.0) Lymphocytes (%) (Auto) 24.5 % (21.0-51.0) Monocytes (%) (Auto) 9.3 % (3.0-13.0) Eosinophils (%) (Auto) 1.0 % (0.0-8.0) Basophils (%) (Auto) 0.5 % (0.0-5.0) Neutrophils # (Auto) 2.7 K/uL (1.8-7.7) Lymphocytes # (Auto) 1.0 K/uL (1.0-4.8) Monocytes # (Auto) 0.4 K/uL (0.1-1.0) Eosinophils # (Auto) 0.04 K/uL (0.00-0.70) Basophils # (Auto) 0.02 K/uL (0.00-0.20) Absolute Immature Granulocyte (auto 0.03 K/uL (0-1) Nucleated Red Blood Cells 0.0 % (0.0-0.19) Platelet Morphology Comment See comments Sodium Level 140 mmol/L (136-145) Potassium Level 4.9 mmol/L (3.5-5.1) Chloride Level 105 mmol/L (101-111) Carbon Dioxide Level 29 mmol/L (21-32) Blood Urea Nitrogen 35 mg/dL (7-18) H Creatinine 1.7 mg/dL (0.5-1.0) H Glomerular Filtration Rate Calc 34 mL/min (>90) Random Glucose 240 mg/dL (70-105) H Total Calcium 8.6 mg/dL (8.5-10.1) Total Bilirubin 1.3 mg/dL (0.2-1.0) H Aspartate Amino Transf (AST/SGOT) 65 U/L (10-37) H Alanine Aminotransferase (ALT/SGPT) 92 U/L (12-78) H Alkaline Phosphatase 322 U/L (50-136) H Ammonia 82 umol/L (11-32) H Troponin I High Sensitivity 6 ng/L (4-50) Total Protein 6.0 g/dL (6.0-8.3) Albumin 3.0 g/dL (3.5-5.0) L Lipase 310 U/L (16-77) H Urine Color LIGHT-YELLOW (YELLOW) Urine Appearance CLEAR (CLEAR) Urine pH 6.0 (5.0-8.0) Urine Specific [place] 1.028 (1.001-1.031) Urine Protein NEGATIVE mg/dL (NEGATIVE) Urine Glucose (UA) >=1000 mg/dL (NEGATIVE) H Urine Ketones NEGATIVE mg/dL (NEGATIVE) Urine Occult Blood NEGATIVE (NEGATIVE) Urine Nitrate NEGATIVE (NEGATIVE) Urine Bilirubin NEGATIVE mg/dL (NEGATIVE) Urine Urobilinogen 0.2 mg/dL (0.2-1.0) Urine Leukocyte Esterase NEGATIVE [place]y/uL Urine RBC 2-5 /HPF (0-1) H Urine WBC 2-5 /HPF (0-1) H Urine Squamous Epithelial Cells FEW /HPF (0-2) Urine Bacteria None /HPF (None Seen) PORTABLE CHEST RADIOGRAPH INDICATION: RIGHT POSTERIOR RIB AND CHEST PAIN COMPARISON: 05/24/2024 FINDINGS: Posterior right rib pain and chest pain Heart size is normal. The pulmonary vascularity and zaida appear normal. No abnormal pulmonary parenchymal opacity or consolidation identified. No significant pleural effusion noted. No pneumothorax detected. IMPRESSION: No radiographic evidence for any acute cardiopulmonary process. TECHNIQUE: Routine transaxial imaging using 5 mm slice thickness through the abdomen and pelvis without the administration of IV contrast. Thin slice reconstructions are also provided. Coronal and sagittal reformatted images acquired for interpretation. CT was performed with one or more of the following dose reduction techniques: Automated exposure control, adjustment of the mA and/or kV according to patient size, or use of iterative reconstruction technique. COMPARISON: None FINDINGS: ON NONCONTRAST IMAGING: ABDOMEN: Heart size is normal. Visible lung bases are clear. Diffuse mild gastric wall thickening. No abnormal renal calcifications, hydronephrosis, perinephric inflammation, or proximal hydroureter detected. The liver is decrease in size and nodular in contour without biliary duct dilation. Mild gastroesophageal varices. The spleen is enlarged and normal in attenuation. Accessory splenule is noted. Gallbladder is surgically absent, and a couple of 1.2 cm peripherally-calcific residual gallstones or chronic seromas noted within the gallbladder fossa, and likely of no clinical significance. The pancreas appears normal without pancreatic duct dilation. The adrenal glands appear normal. No significant abdominal, retrocrural or retroperitoneal adenopathy noted. No evidence for intra-abdominal free air or organized fluid collection. No aortic aneurysmal dilation identified. PELVIS: No abnormal calcifications within the urinary bladder or distal ureters. No evidence for free air or organized pelvic fluid collection. No significant pelvic adenopathy detected. Extensive stool burden. Terminal ileum appears unremarkable. The appendix appears normal. 3.0 cm right and 2.5 cm left ovarian cysts. Visible osseous structures are intact. IMPRESSION: 1. Suspect mild gastritis. GI consult is recommended. 2. Cirrhotic liver, splenomegaly, and mild gastroesophageal varices. 3. 3.5 cm right and 2.5 cm left ovarian cysts 4. Constipation. 5. Additional minor findings, postsurgical changes, and pertinent negatives as reported. Labs Reviewed?: Yes EKG Comment: EKG SINUS RHYTHM/HEART RATE 80/AXIS NORMAL/NONSPECIFIC CHANGES IN V2 V3 ED Course ED Course Orders Procedure Category Date Status Time Ammonia LAB 09/17/24 Complete 11:20 Cbc With Differential LAB 09/17/24 Complete 11:20 Troponin I High LAB 09/17/24 Complete Sensitivity 11:20 Urinalysis Profile LAB 09/17/24 Complete 11:20 12 Lead Ekg Tracing- EKG 09/17/24 Complete Technical 11:20 Morphine 2mg Syg PHA 09/17/24 Complete (Morphine 2mg Syg) 11:30 Ondansetron 4mg Inj PHA 09/17/24 Complete (Zofran 4mg Inj) 11:30 Chest 1vw RAD 09/17/24 Resulted 11:20 Lipase LAB 09/17/24 Complete 11:20 Comprehensive LAB 09/17/24 Complete Metabolic Panel 11:25 0.9%Nacl 1000ml (Ns PHA 09/17/24 Complete 1000ml) 13:00 Morphine 2mg Syg PHA 09/17/24 Complete (Morphine 2mg Syg) 13:00 Ondansetron 4mg Inj PHA 09/17/24 Complete (Zofran 4mg Inj) 13:00 Ct Abdomen/Pelvis W/O CT 09/17/24 Resulted Contrast 13:09 Current Medications Medications (Trade) Dose Ordered Sig/Renetta Route PRN Reason Start Time Stop Time Status Last Admin Dose Admin Morphine Sulfate (morPHINE 2MG SYG) 2 mg ONCE ONCE IVP 09/17/24 11:30 09/17/24 11:31 DC 09/17/24 12:42 Morphine Sulfate (morPHINE 2MG SYG) 2 mg ONCE ONCE IVP 09/17/24 13:00 09/17/24 13:01 DC Ondansetron HCl (zoFRAN 4MG INJ) 4 mg ONCE ONCE IVP 09/17/24 11:30 09/17/24 11:31 DC 09/17/24 12:42 Ondansetron HCl (zoFRAN 4MG INJ) 4 mg ONCE ONCE IVP 09/17/24 13:00 09/17/24 13:01 DC Sodium Chloride 1,000 ml @ 0 mls/hr ONCE ONCE IV 09/17/24 13:00 09/17/24 13:01 DC 09/17/24 12:41 Vital Signs Date Time Temp Pulse Resp B/P (MAP) Pulse Ox O2 Delivery O2 Flow Rate FiO2 09/17/24 13:04 97.9 85 18 129/63 97 Room Air* 0 09/17/24 10:55 97.9 89 18 129/54 97 Room Air* 0 09/17/24 10:55 97.9 89 18 129/54 97 Room Air 0 1445, PATIENT STATES SHE FEELS BETTER AFTER FLUIDS AND PAIN MANAGEMENT. SHE IS AWARE SHE HAS BEEN ADMITTED TO THE HOSPITAL FOR ACUTE PANCREATITIS. ALSO ELEVATED LFTS AND ESOPHAGEAL VARICES. FIFTEEN [address] BRAGG AND REVIEWED LABS CT CHEST X-RAY ETC. HE SAID PATIENT WAS NOT A CANDIDATE FOR ADMISSION AND FELT SHE WAS MORE DEHYDRATED I ASSURED HIM I HAD ALREADY REHYDRATED PATIENT HE SAID TO SEND HER HOME WITH PAIN MANAGEMENT AND HAVE HER FOLLOW UP WITH DR. BLAKE MCGRAW AND DR. REDDY. THIS WAS EXPLAINED TO PATIENT AND HIS HER DAUGHTER ALL QUESTIONS ANSWERED HEART Score Response (Comments) Value EKG: Repolarization changes 1 Age: 45-65yrs (+1) 1 Risk Factors: 1-2 risk factors (+1) 1 Initial Troponin: Normal limit (0) 0 Total 3 Medical Decision Making MDM MDM: DIFFERENTIAL DIAGNOSIS: ACS/AMI/PNEUMONI A/BRONCHITIS/PANCREATITIS/DIVERTICULITIS RATIONALE: TESTS CONSIDERED AND ORDERED SECONDARY TO SHARED DECISION MAKING INCLUDE: LABS, ECG AND RADIOLOGY PREVIOUS OUTSIDE RECORDS REVIEWED: OLD ER VISITS. RISK OF COMPLICATION AND/OR MORBIDITY OR MORTALITY OF PATIENT MANAGEMENT: MILD MODERATE MEDICATIONS-PER MEDICATION RECONCILIATION NEED FOR HOSPITALIZATION: PATIENT DOES MEET CRITERIA FOR HOSPITALIZATION. PATIENT WILL NEED TO BE ADMITTED FOR ELEVATED LIVER FUNCTION TEST, ACUTE PANCREATITIS CHRONIC KIDNEY DISEASE NEED FOR EMERGENCY MAJOR/MINOR SURGERY: NO THERE ARE NO SOCIAL CONCERNS WITH THIS PATIENT. PRESCRIPTION DRUG MANAGEMENT PRESCRIPTIONS WILL INCLUDE SYMPTOMATIC CARE PATIENT'S PRIOR EXTERNAL MEDICAL RECORDS FROM OTHER ER VISITS WERE REVIEWED BY ME INDICATED. PRIOR TESTING AND RESULTS FROM PREVIOUS VISITS WERE REVIEWED. PRIOR TESTS WERE TAKEN INTO ACCOUNT WITH MEDICAL DECISION MAKING AND RESOURCE UTILIZATION, INDEPENDENT HISTORIAN/HISTORIANS WERE USED TO OBTAIN COMPLETE MEDICAL HISTORY. I INDEPENDENTLY INTERPRETED THE TEST THAT WERE PERFORMED, RESULTS WERE REVIEWED BY ME AND CONSIDERED FINDINGS ON RADIOLOGY IF ORDERED. MEDICAL MANAGEMENT AND EXAMINATION INTERPRETATION DISCUSSIONS WERE HAD BY ME WITH OTHER QUALIFIED HEALTHCARE PROFESSIONALS INDICATED FOR THE PATIENT'S CARE. 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 Take medications as directed here in the emergency room. Okay to continue home medications unless otherwise discussed during your visit in the emergency room today. Return to your nearest emergency room if symptoms worsen or if there is no improvement. Call 911 if you need immediate assistance. Take Tylenol or Motrin [id number] as needed and if no contraindications are present. Increase oral hydration. A wound culture or urine culture was ordered here in the emergency room department please follow-up with primary care provider and advise them to get repeat ports from our facility. If you had any Tobin wrap/splints that were applied here, please do not remove them until you see your primary care or specialty. Follow up with your photographic enlarger operator in the next 2-3 days, call for an appointment. Increase your water intake. Continue with lactulose 30 mL3 times a day. Referrals: PERCY GOSS MD (PCP) Time of Disposition: 14:50 I have reviewed the case, and I agree with, Diagnosis and Plan SCOTT MADRIGAL NP Sep 17, 2024 11:23
--- NOTE | 2024-09-17 11:48 | HMCIMG ---
PORTABLE CHEST RADIOGRAPH INDICATION: RIGHT POSTERIOR RIB AND CHEST PAIN COMPARISON: 05/24/2024 FINDINGS: Posterior right rib pain and chest pain Heart size is normal. The pulmonary vascularity and zaida appear normal. No abnormal pulmonary parenchymal opacity or consolidation identified. No significant pleural effusion noted. No pneumothorax detected. IMPRESSION: No radiographic evidence for any acute cardiopulmonary process.
[2024-09-17 12:20] LABS: AMMONIA 82 umol/L (11-32)
[2024-09-17 12:33] LABS: ADD UA MICROSCOPIC YES
[2024-09-17 12:36] LABS: APPEARANCE,URINE CLEAR (CLEAR); BILIRUBIN,URINE NEGATIVE (NEGATIVE); COLOR,URINE LIGHT-YELLOW (YELLOW); GLUCOSE, URINE (UA) >=1000 mg/dL (NEGATIVE); KETONES,URINE NEGATIVE (NEGATIVE); LEUKOCYTE ESTERASE ,URINE NEGATIVE Leu/uL (NEGATIVE); MUCUS,URINE RARE LPF (None Seen); NITRATE,URINE NEGATIVE (NEGATIVE); OCCULT BLOOD,URINE NEGATIVE (NEGATIVE); PROTEIN,URINE NEGATIVE (NEGATIVE); SQUAMOUS EPITHELIAL CELL,UR FEW /HPF (0-2); UROBILINOGEN,URINE 0.2 mg/dL (0.2-1.0)
[2024-09-17] MEDS: 0.9%NACL 1000ML 1,000 ML IV ONE (12:41)
[2024-09-17] MEDS: morPHINE 2 MG SYG IVP ONE ×2 (12:42→12:52)
[2024-09-17] MEDS: ondanSETRON 4MG INJ IVP ONE ×2 (12:42→12:52)
[2024-09-17 12:56] LABS: CREATININE 1.7 mg/dL (0.5-1.0); POTASSIUM 4.9 mmol/L (3.5-5.1)
--- NOTE | 2024-09-17 12:58 | EKG ---
[facility] Test Date: 2024-09-17 Test Time: 12:54:38 Pat Name: OJ SOUSA Department: ED Room: Gender: F Mixing Picker Tender: [id number] : [id number] Requested By: SCOTT MADRIGAL Order Number: [id number] Reading MD: Yony Gray Measurements Intervals [place] Rate: 80 P: 25 [place]: 121 QRS: -29 QRSD: 90 T: 41 QT: 408 QTc: 470 Interpretive Statements Sinus rhythm Low voltage, precordial leads Poor R wave progression Compared to ECG 05/24/2024 19:14:49 Low QRS voltage now present Myocardial infarct finding now present Left-axis deviation no longer present Electronically Signed On 09-18-2024 10:23:39 CORPORATE AFFAIRS MANAGER by Yony Gray Please click the below link to view image of tracing.
[2024-09-17 13:01] LABS: BILIRUBIN,TOTAL 1.3 mg/dL (0.2-1.0)
[2024-09-17 13:02] LABS: BASOPHILS # (AUTO) 0.02 K/uL (0.00-0.20); BASOPHILS % (AUTO) 0.5 % (0.0-5.0); EOSINOPHILS # (AUTO) 0.04 K/uL (0.00-0.70); HEMATOCRIT 36.4 % (36-48); IMMATURE GRANULOCYTE ABSOLUTE 0.03 K/uL (0-1); LYMPHOCYTES % (AUTO) 24.5 % (21.0-51.0); MEAN CORPUSCULAR HEMOGLOBIN 34.3 pg (27.0-33.0); MEAN CORPUSCULAR HGB CONC 34.3 g/dL (32.0-36.0); MONOCYTES # (AUTO) 0.4 K/uL (0.1-1.0); MONOCYTES % (AUTO) 9.3 % (3.0-13.0); NEUTROPHILS # (AUTO) 2.7 K/uL (1.8-7.7); PLATELET COUNT (AUTO) 55 K/uL (130-400); RED BLOOD CELL COUNT(AUTO) 3.64 MIL/uL (4.00-5.50); RED CELL DISTRIBUTION WIDTH 14.5 % (11.0-15.5); WHITE BLOOD COUNT (AUTO) 4.2 K/uL (4.8-10.8)
--- NOTE | 2024-09-17 13:51 | HMCIMG ---
CT ABDOMEN WITHOUT CONTRAST. CT PELVIS WITHOUT CONTRAST. INDICATION: Epigastric and right upper abdominal pain TECHNIQUE: Routine transaxial imaging using 5 mm slice thickness through the abdomen and pelvis without the administration of IV contrast. Thin slice reconstructions are also provided. Coronal and sagittal reformatted images acquired for interpretation. CT was performed with one or more of the following dose reduction techniques: Automated exposure control, adjustment of the mA and/or kV according to patient size, or use of iterative reconstruction technique. COMPARISON: None FINDINGS: ON NONCONTRAST IMAGING: ABDOMEN: Heart size is normal. Visible lung bases are clear. Diffuse mild gastric wall thickening. No abnormal renal calcifications, hydronephrosis, perinephric inflammation, or proximal hydroureter detected. The liver is decrease in size and nodular in contour without biliary duct dilation. Mild gastroesophageal varices. The spleen is enlarged and normal in attenuation. Accessory splenule is noted. Gallbladder is surgically absent, and a couple of 1.2 cm peripherally-calcific residual gallstones or chronic seromas noted within the gallbladder fossa, and likely of no clinical significance. The pancreas appears normal without pancreatic duct dilation. The adrenal glands appear normal. No significant abdominal, retrocrural or retroperitoneal adenopathy noted. No evidence for intra-abdominal free air or organized fluid collection. No aortic aneurysmal dilation identified. PELVIS: No abnormal calcifications within the urinary bladder or distal ureters. No evidence for free air or organized pelvic fluid collection. No significant pelvic adenopathy detected. Extensive stool burden. Terminal ileum appears unremarkable. The appendix appears normal. 3.0 cm right and 2.5 cm left ovarian cysts. Visible osseous structures are intact. IMPRESSION: 1. Suspect mild gastritis. GI consult is recommended. 2. Cirrhotic liver, splenomegaly, and mild gastroesophageal varices. 3. 3.5 cm right and 2.5 cm left ovarian cysts 4. Constipation. 5. Additional minor findings, postsurgical changes, and pertinent negatives as reported.
[2024-09-17] MEDS ORDERED: ACET-2079 PO (15:14)
[2024-09-17 15:45] VITALS: BP 121/65; PULSE 78; RESP 18; TEMP 97.9; O2SAT 97
== END 2024-09-17 15:54 | disposition home or self-care (01) ==
LOC: EDH 10:51
DX: K85.90 Acute pancreatitis without necrosis or infection, unspecified (principal); K70.30 Alcoholic cirrhosis of liver without ascites; R81 Glycosuria; N83.201 Unspecified ovarian cyst, right side; N83.202 Unspecified ovarian cyst, left side; E78.00 Pure hypercholesterolemia, unspecified; I10 Essential (primary) hypertension; E66.9 Obesity, unspecified; E11.9 Type 2 diabetes mellitus without complications; Z79.4 Long term (current) use of insulin; Z79.84 Long term (current) use of oral hypoglycemic drugs; Z79.85 Long-term (current) use of injectable non-insulin antidiabetic drugs; Z79.899 Other long term (current) drug therapy; Z90.49 Acquired absence of other specified parts of digestive tract
CPT/HCPCS: 99285; 74176; 96374; 96361; 71045; 96375; 84484; 80053; 82140; 83690; 85025; 81001; 36415; 93005; J2270; J7030; J2405

== ENCOUNTER → 2024-09-22 | Outpatient (CLI) | payer MEDICARE ==
[2024-09-22 11:29] LABS: BASOPHILS # (AUTO) 0.01 K/uL (0.00-0.20); BASOPHILS % (AUTO) 0.3 % (0.0-5.0); EOSINOPHILS # (AUTO) 0.06 K/uL (0.00-0.70); EOSINOPHILS % (AUTO) 1.8 % (0.0-8.0); HEMATOCRIT 35.3 % (36-48); IMMATURE GRANULOCYTE ABSOLUTE 0.01 K/uL (0-1); LYMPHOCYTES # (AUTO) 0.7 K/uL (1.0-4.8); LYMPHOCYTES % (AUTO) 20.7 % (21.0-51.0); MEAN CORPUSCULAR HEMOGLOBIN 34.9 pg (27.0-33.0); MEAN CORPUSCULAR HGB CONC 34.3 g/dL (32.0-36.0); MEAN CORPUSCULAR VOLUME 101.7 fL (79-99); MONOCYTES # (AUTO) 0.3 K/uL (0.1-1.0); MONOCYTES % (AUTO) 9.6 % (3.0-13.0); NEUTROPHILS # (AUTO) 2.2 K/uL (1.8-7.7); NEUTROPHILS % (AUTO) 67.3 % (40.0-77.0); PLATELET COUNT (AUTO) 61 K/uL (130-400); RED BLOOD CELL COUNT(AUTO) 3.47 MIL/uL (4.00-5.50); RED CELL DISTRIBUTION WIDTH 14.6 % (11.0-15.5); WHITE BLOOD COUNT (AUTO) 3.3 K/uL (4.8-10.8)
[2024-09-22 11:39] LABS: ALBUMIN 3.1 g/dL (3.5-5.0); BILIRUBIN,TOTAL 1.9 mg/dL (0.2-1.0); CREATININE 1.3 mg/dL (0.5-1.0); POTASSIUM 4.2 mmol/L (3.5-5.1)
[2024-09-22 11:41] LABS: INR 1.04 (0.85-1.15); PROTHROMBIN TIME 11.6 SEC (9.6-11.6)
[2024-09-22 11:42] LABS: PARTIAL THROMBOPLASTIN TIME 29.6 SEC (26.3-35.5)
== END | disposition home or self-care (01) ==
LOC: LAB 10:22
PROVIDERS: ATTEND Internal Medicine Gastroenterology
DX: K74.69 Other cirrhosis of liver (principal)
CPT/HCPCS: 36415; 80053; 82105; 85025; 85610; 85730

== ENCOUNTER → 2025-03-16 | Outpatient (CLI) | payer MEDICARE ==
[~2025-03-16] MED LIST changes: -NADO20TA36 PO; +NADO20TA37 PO
[2025-03-16 11:11] LABS: IMMATURE GRANULOCYTE ABSOLUTE 0.02 K/uL (0-1); NUCLEATED RED BLOOD CELLS 0.0 % (0.0-0.19); PLATELET COUNT (AUTO) 65 K/uL (130-400); RED BLOOD CELL COUNT(AUTO) 3.46 MIL/uL (4.00-5.50); RED CELL DISTRIBUTION WIDTH 14.2 % (11.0-15.5); WHITE BLOOD COUNT (AUTO) 4.5 K/uL (4.8-10.8)
[2025-03-16 11:29] LABS: CREATININE 1.4 mg/dL (0.5-1.0); GLOMERULAR FILTR. RATE CALC 42.0 mL/min (>90); GLUCOSE,RANDOM 148.0 mg/dL (70-105); PHOSPHORUS 4.4 mg/dL (2.5-4.9); SODIUM SERUM 141.0 mmol/L (136-145); UREA NITROGEN, BLOOD 31.0 mg/dL (7-18)
[2025-03-16 11:30] LABS: % IRON SATURATION 41.0 % (22-44); IRON, SERUM 110.0 mcg/dL (50-170)
== END | disposition home or self-care (01) ==
LOC: LAB 10:20
PROVIDERS: ATTEND Internal Medicine Nephrology
DX: N25.81 Secondary hyperparathyroidism of renal origin (principal); N18.32 Chronic kidney disease, stage 3b; E61.1 Iron deficiency
CPT/HCPCS: 36415; 80069; 82306; 82570; 82728; 83540; 83550; 83970; 84156; 85025

== ENCOUNTER 2025-05-20 00:38 | Emergency (ER) | payer MEDICARE ==
[~2025-05-20] VITALS: Ht 157.5 cm; Wt 93.9 kg
[~2025-05-20 00:38] MED LIST changes: -ACET-2079 PO; -AMLO-258 PO; -DOCU240C25 PO; -FAMO40TA7 PO; -FLUT16H NS; -INSU100I24 SQ; -INSU100I32 SQ; +INSU100V37 SQ; +INSU100V42 SQ; -INSU200I4 SQ; +METO10TA3 PO; -NADO20TA37 PO; -POLY17PO4 PO; +ROSU5TAB51 PO; -SEMA1PEN3 SQ; -SERT-440 PO; -SIMV-43 PO
--- NOTE | 2025-05-20 00:57 | ERN ---
ED Note History of Present Illness Stated Complaint: C/O N X V; D/C SundayN FROM HOSPITAL Chief Complaint: Nausea,Vomiting,Diarrhea Time Seen by MD: 00:49 Dictation: This is a 64-year-old morbidly obese female who presented to the emergency room complaining of nausea vomitings and basically discharged yesterday from the hospital. Patient's daughter accompanied her and indicated that there is a talk about evaluating her for liver transplant This is an ongoing problem and patient was given Reglan which the patient feels is not effective. No hematemesis or melena. No fever chills or rigors. Temperature 97.5 pulse 88 respirations 20 blood pressure 130/46 pulse oximetry 97% on room air Her chronic medical problems include diabetes mellitus, hypertension, cirrhosis of the liver, chronic anemia. Patient had a cholecystectomy in the past Allergies: Coded Allergies: No Known Drug Allergies (Unverified Allergy, Unknown, 06/27/22) Home Meds Active Scripts Promethazine HCl (Promethazine HCl) 50 Mg Tablet, 0.5 TAB PO BID for nausea for 7 Days, #14 TAB 0 Refills Prov:AIDAN COCHRAN MD 05/20/25 Rifaximin (Xifaxan) 550 Mg Tablet, 550 MG PO BID, #60 TAB 4 Refills Prov:KATHIA SAMPSON MD 06/29/22 Folic Acid (Folic Acid) 0.8 Mg Capsule, 1 MG PO DAILY, #30 CAP 1 Refill Prov:KATHIA SAMPSON MD 06/27/22 Ferrous Sulfate (Ferrous Sulfate) 325 Mg Tablet, 325 MG PO DAILY, #30 TAB 1 Refill Prov:KATHIA SAMPSON MD 06/27/22 Reported Medications Rosuvastatin Calcium (Rosuvastatin Calcium) 5 Mg Tablet, 5 MG PO AD, TAB 05/18/25 Rosuvastatin Calcium (Rosuvastatin Calcium) 5 Mg Tablet, 1 TAB PO DAILY for high cholesterol for 30 Days, #30 TAB 0 Refills 05/18/25 Pantoprazole Sodium (Pantoprazole Sodium) 40 Mg Tablet.dr, 40 MG PO AM, TAB 05/18/25 Metoclopramide HCl (Metoclopramide HCl) 10 Mg Tablet, 10 MG PO AD PRN for NAUSEA/VOMITING, TAB 05/18/25 Insulin Aspart (Insulin Aspart) 100 Unit/Ml Vial, 30 UNIT SQ AD, VIAL 05/18/25 Insulin Degludec (Tresiba) 100 Unit/Ml Vial, 60 UNIT SQ AD, VIAL 05/18/25 Lactulose (Lactulose) 20 Gram/30 Ml Solution, 20 GM PO TID, ML 07/07/24 Pantoprazole Sodium (Pantoprazole Sodium) 40 Mg Tablet.dr, 1 TAB PO DAILY for 30 Days, #30 TAB 0 Refills 07/04/24 Furosemide (Furosemide) 40 Mg Tablet, 1 TAB PO DAILY for 30 Days, #30 TAB 0 Refills 07/04/24 Dapagliflozin Propanediol (Farxiga) 10 Mg Tablet, 1 TAB PO DAILY for 30 Days, #30 TAB 0 Refills 07/04/24 Cyanocobalamin (Vitamin B-12) (Vitamin B12) 2,500 Mcg Tablet, 1000 MCG PO DAILY, TAB 07/04/24 Spironolactone (Spironolactone) 50 Mg Tablet, 50 MG PO BID, TAB 07/04/24 Discontinued Reported Medications Nadolol (Nadolol) 20 Mg Tablet, 1 TAB PO DAILY for 30 Days, #30 TAB 0 Refills 07/04/24 Insulin Degludec (Tresiba Flextouch U-100) 100 Unit/Ml (3 Ml) Insuln.pen, 50 UNIT SQ DAILY, SYRINGE 07/04/24 Insulin Aspart (Niacinamide) (Fiasp 100 Unit/ml Flextouch) 100 Unit/Ml (3 Ml) Insuln.pen, 10 UNIT SQ ACHS, SYRINGE 07/04/24 Discontinued Scripts Acetaminophen with Codeine (Acetaminophen-Cod #3 Tablet) 300 Mg-30 Mg Tablet, 1 TAB PO Q4H PRN for MODERATE TO SEVERE, #15 TAB 0 Refills Prov:SCOTT MADRIGAL NP 09/17/24 Acetaminophen with Codeine (Acetaminophen-Cod #3 Tablet) 300 Mg-30 Mg Tablet, 1- 2 TAB PO Q4H PRN for PAIN, #20 TAB 0 Refills Prov:KRISS MCINTOSH MD 06/08/24 Insulin Degludec (Tresiba Flextouch U-200) 200 Unit/1 Ml Insuln.pen, 45 UNIT SQ BID, #30 SYRINGE 1 Refill Prov:KATHIA SAMPSON MD 06/29/22 Amlodipine Besylate (Amlodipine Besylate) 10 Mg Tablet, 5 MG PO DAILY for 30 Days, #30 TAB 0 Refills Prov:KATHIA SAMPSON MD 06/29/22 Docusate Calcium (Surfak 240 mg Cap) 240 Mg Cap, 240 MG PO BID, #30 CAP 1 Refill Prov:KATHIA SAMPSON MD 06/27/22 Simvastatin (Simvastatin) 20 Mg Tablet, 20 MG PO DAILY, #30 TAB 1 Refill Prov:KATHIA SAMPSON MD 06/27/22 Sertraline HCl (Sertraline HCl) 100 Mg Tablet, 100 MG PO DAILY, #30 TAB 1 Refill Prov:KATHIA SAMPSON MD 06/27/22 Semaglutide (Ozempic) 1 Mg/0.75 Ml Pen.injctr, 1 MG SQ QWEEK, #30 EA 1 Refill Prov:KATHIA SAMPSON MD 06/27/22 Polyethylene Glycol 3350 (Miralax) 17 Gm Powd.pack, 17 GM PO DAILY, #30 EA Prov:KATHIA SAMPSON MD 06/27/22 Fluticasone Propionate (Fluticasone Propionate) 16 Gm [place].susp, 16 GM NS DAILY PRN for NASAL CONGESTION, #30 EA 1 Refill Prov:KATHIA SAMPSON MD 06/27/22 Famotidine (Famotidine) 40 Mg Tablet, 40 MG PO DAILY, #30 TAB 1 Refill Prov:KATHIA SAMPSON MD 06/27/22 Past Medical History Past Medical History: Anemia, Diabetes-Type II, Hypertension, Liver Disease, Other Additional Past Medical Hx: LIVER CIRRHOSIS Surgical History: Other Surgical History Other: SHOULDER REPLACEMENT Family History: Negative Social History: Negative History: Not Applicable RN Note Reviewed/Agreed w/PFSH: Yes Review of System Dictation Constitutional: Negative for fever,chills, and weight loss Eyes: Negative for injury, pain,redness, and discharge ENT: Negative for injury,pain or swelling Cardiovascular: Negative for chest pain, palpitations, and edema Respiratory: Negative for shortness of breath, cough, and wheezing, Abdomen/GI: Negative for abdominal pain,diarrhea, and constipation positive for nausea, vomiting, Back: Negative for injury and pain : Negative for injury, bleeding and discharge MS/Extremity: Negative for injury and deformity Skin: Negative for rash, and discoloration Neuro: Negative for headache, weakness, numbness, tingling, and seizure Psych: Negative for suicide ideation, homicidal ideation, and hallucinations Initial Vital Sign VS Vital Signs Date Time Temp Pulse Resp B/P (MAP) Pulse Ox O2 Delivery O2 Flow Rate FiO2 05/20/25 00:40 97.5 88 20 130/46 97 Room Air 05/20/25 01:25 0 21 Physical Exam Dictation General: awake, alert, NAD morbidly obese Head/Face: Normocephalic, atraumatic Eyes: PERRL, EOMI, vision at baseline ENT: oral cavity clear, TMs clear, no signs of infection Neck: Trachea midline, supple, no nuchal rigidity Cardiovascular: RRR, normal S1/S2, No MRGs, no JVD Respiratory: CTAB, no respiratory distress, No rales or wheezes Abdomen: Soft, non-tender, non-distended, normal bowel sounds, no guarding or re bound. Skin: Warm, dry, normal turgor, no rash MS/Extremity: Pulses equal, no cyanosis, neurovascular intact, FROM Neuro: COAx4, GCS 15, strength 5/5, CN 2-12 intact, normal cerebellar exam, normal gait, Psych: Normal behavior, mood, and affect normal Extremities-trace edema without any palpable cords, Homans sign is negative Results (Laboratory/Radiology) Laboratory/Radiology Laboratory Tests Test 05/20/25 01:14 05/20/25 01:28 White Blood Count 4.3 K/uL (4.8-10.8) L Red Blood Count 3.11 MIL/uL (4.00-5.50) L Hemoglobin 11.6 g/dL (12.0-16.0) L Hematocrit 31.3 % (36-48) L Mean Corpuscular Volume 100.6 fL (79-99) H Mean Corpuscular Hemoglobin 37.3 pg (27.0-33.0) H Mean Corpuscular Hemoglobin Concent 37.1 g/dL (32.0-36.0) H Red Cell Distribution Width 13.9 % (11.0-15.5) Platelet Count 59 K/uL (130-400) L Mean Platelet Volume 11.8 fL (7.5-10.5) H Immature Granulocyte % (Auto) 0.5 % (0-1) Neutrophils (%) (Auto) 69.1 % (40.0-77.0) Lymphocytes (%) (Auto) 21.0 % (21.0-51.0) Monocytes (%) (Auto) 8.5 % (3.0-13.0) Eosinophils (%) (Auto) 0.7 % (0.0-8.0) Basophils (%) (Auto) 0.2 % (0.0-5.0) Neutrophils # (Auto) 3.0 K/uL (1.8-7.7) Lymphocytes # (Auto) 0.9 K/uL (1.0-4.8) L Monocytes # (Auto) 0.4 K/uL (0.1-1.0) Eosinophils # (Auto) 0.03 K/uL (0.00-0.70) Basophils # (Auto) 0.01 K/uL (0.00-0.20) Absolute Immature Granulocyte (auto 0.02 K/uL (0-1) Nucleated Red Blood Cells 0.0 % (0.0-0.19) Sodium Level 137 mmol/L (136-145) Potassium Level 3.8 mmol/L (3.5-5.1) Chloride Level 102 mmol/L (101-111) Carbon Dioxide Level 22 mmol/L (21-32) Blood Urea Nitrogen 28 mg/dL (7-18) H Creatinine 2.1 mg/dL (0.5-1.0) H Glomerular Filtration Rate Calc 26 mL/min (>90) Random Glucose 203 mg/dL (70-105) H Total Calcium 9.2 mg/dL (8.5-10.1) Urine Color YELLOW (YELLOW) Urine Appearance CLEAR (CLEAR) Urine pH 5.5 (5.0-8.0) Urine Specific [place] 1.025 (1.001-1.031) Urine Protein NEGATIVE mg/dL (NEGATIVE) Urine Glucose (UA) >=1000 mg/dL (NEGATIVE) H Urine Ketones NEGATIVE mg/dL (NEGATIVE) Urine Occult Blood NEGATIVE (NEGATIVE) Urine Nitrate NEGATIVE (NEGATIVE) Urine Bilirubin NEGATIVE mg/dL (NEGATIVE) Urine Urobilinogen 0.2 mg/dL (0.2-1.0) Urine Leukocyte Esterase NEGATIVE [place]/uL Urine RBC 2-5 /HPF (0-1) H Urine WBC 2-5 /HPF (0-1) H Urine Squamous Epithelial Cells FEW /HPF (0-2) Urine Bacteria None /HPF (None Seen) Urine Hyaline Casts 2-5 /LPF (0-1 /LPF) H Labs Reviewed?: Yes CT Scan Comment: REASON: cirrhosis nausea comitings ? colitis Diverticulitis ORDERING PHYSICIAN: AIDAN COCHRAN MD PROCEDURE: ABD PEL WO - CT ABDOMEN/PELVIS W/O CONTRAST EXAM: CT Abdomen and Pelvis without IV contrast CLINICAL HISTORY: Cirrhosis. Nausea. Vomiting. Questionable colitis or diverticulitis. TECHNIQUE: Thin collimated axial CT images of the abdomen and pelvis were obtained, with sagittal and coronal reformatted images also submitted. A CT scan is done according to ALARA (As Low As Reasonably Achievable). CONTRAST: None. COMPARISON: CT abdomen and pelvis dated 09/17/2024. FINDINGS: The included lungs are clear. Volume redistribution of the liver with a lobulated nodular hepatic contour, compatible with liver cirrhosis. There are surgical clips in the gallbladder, compatible with postcholecystectomy status. There are two peripherally calcified lesions are present within the gallbladder fossa, measuring about 1.7 cm to 1.8 cm, could be residual gallstones. Mild splenomegaly. There are a few of splenunculus anterior to the spleen. No focal abnormality within the pancreas or adrenals. There is a punctate cortical calcification around the right renal midpole. The urinary bladder is suboptimally distended and grossly unremarkable. Unremarkable uterus. There are multiple cysts in the bilateral ovaries, the largest measures up to 4 cm on the left side. No obvious bowel wall thickening, dilatation, or obstruction. Unremarkable appendix. A component of mild constipation is present in the colon. Mild calcific atherosclerotic disease in the abdominal aorta and its branches. Portosystemic collaterals are present. No ascites or pneumoperitoneum. No pathological lymphadenopathy in the abdomen or pelvis. No acute bony abnormality is evident. Degenerative osseous changes. Cutaneous thickening around the umbilical area. IMPRESSIONS: No acute process in the abdomen or pelvis. No acute colitis or diverticulitis. Liver cirrhosis. Mild splenomegaly. Mild portosystemic collaterals. Status postcholecystectomy. Questionable residual gallstones around the gallbladder fossa. Bilateral ovarian cysts. Recommend ultrasound of the pelvis for further evaluation. A component of mild constipation is present in the colon. Compared to the prior study, there is no significant interval change. /[place] DICTATED BY: ZAY RON Jr., MD DATE: 05/20/25421 ELECTRONICALLY SIGNED BY: ZAY RON Jr., MD DATE: 05/20/25421 ED Course ED Course Orders Procedure Category Date Status Time 0.9%Nacl 1000ml (Ns PHA 05/20/25 Complete 1000ml) 01:00 Ondansetron 4mg Inj PHA 05/20/25 Complete (Zofran 4mg Inj) 01:00 Ct Abdomen/Pelvis W/O CT 05/20/25 Resulted Contrast 00:55 Basic Metabolic Panel LAB 05/20/25 Complete 01:13 Cbc With Differential LAB 05/20/25 Complete 01:13 Urinalysis Profile LAB 05/20/25 Complete 01:30 Prochlorperazine PHA 05/20/25 Complete 10mg/2ml Inj 04:00 Current Medications Medications (Trade) Dose Ordered Sig/Renetta Route PRN Reason Start Time Stop Time Status Last Admin Dose Admin Ondansetron HCl (zoFRAN 4MG INJ) 4 mg ONCE ONCE IVP 05/20/25 01:00 05/20/25 01:01 DC 05/20/25 01:15 Prochlorperazine Edisylate (Compazine 10mg/ 2ml Inj) 10 mg ONCE ONCE IV 05/20/25 04:00 05/20/25 04:01 DC 05/20/25 04:04 Sodium Chloride 1,000 ml @ 0 mls/hr ONCE ONCE IV 05/20/25 01:00 05/20/25 01:01 DC 05/20/25 01:17 Vital Signs Date Time Temp Pulse Resp B/P (MAP) Pulse Ox O2 Delivery O2 Flow Rate FiO2 05/20/25 04:14 98.4 85 18 132/62 85 Room Air* 0 05/20/25 01:25 98.4 88 18 125/66 98 Room Air* 0 05/20/25 00:40 97.5 88 20 130/46 97 Room Air Medical Decision Making MDM Differential diagnosis: Gastritis, esophagitis, cholangitis, gastroparesis, medication side effects This is a 64-year-old morbidly obese female who presented to the emergency room complaining of nausea vomitings and basically discharged yesterday from the hospital. Patient's daughter accompanied her This is an ongoing problem and patient was given Reglan which the patient feels is not effective. No hematemesis or melena. No fever chills or rigors. Temperature 97.5 pulse 88 respirations 20 blood pressure 130/46 pulse oximetry 97% on room air Her chronic medical problems include diabetes mellitus, hypertension, cirrhosis of the liver, chronic anemia. Patient had a cholecystectomy in the past 1:25 a.m. labs reviewed CBC shows a white count of 4.3 hemoglobin 11.6 platelets 59. BNP 7 shows a BUN and creatinine of 28 and 2.1. Urinalysis is unremarkable I have given a trial of Zofran and requested a CT scan of the abdomen and pelvis due to ongoing symptoms. CT abdomen took a very long time to get it done as a ER was extremely busy 3:[address] abdomen pelvis results reviewed please see the report in the results section. No evidence of any small bowel obstruction I updated the patient and her daughter on the CT scan results in the labs and offered Compazine as a 1 time dose as she still has nausea. Patient tolerated it very well and overall felt significantly improved. She will be discharged to see her primary care physician today Rationale: Tests considered and ordered secondary to shared decision making include: Previous outside records reviewed: Old ER visits. Risk of complication and/or morbidity or mortality of patient management: None Medications-Per medication reconciliation Need for hospitalization: Patient does not meet criteria for hospitalization. Need for emergency major/minor surgery: No There are no social concerns with this patient. Prescription drug management Prescriptions will include symptomatic care Patient's prior external medical records from other ER visits were reviewed by me as indicated. Prior testing and results from previous visits were reviewed. Prior tests were taken into account with medical decision making and resource utilization, independent historian/historians were used to obtain complete medical history. I independently interpreted the test that were performed, results were reviewed by me and considered findings on radiology if ordered. Medical management and examination interpretation discussions were had by me with other qualified healthcare professionals as indicated for the patient's care. Problem List Problem List: (1) Nausea & vomiting (2) Cirrhosis (3) Chronic renal insufficiency DX & DISP Disposition: Discharge Departure Impression: Primary Impression: Nausea & vomiting Additional Impressions: Cirrhosis, Chronic renal insufficiency Condition: Stable Scripts Promethazine HCl (Promethazine HCl) 50 Mg Tablet 0.5 TAB PO BID for nausea for 7 Days, #14 TAB 0 Refills Prov: AIDAN COCHRAN MD 05/20/25 Additional Instructions: Patient and the caregiver have been informed of all the diagnostic tests and the imaging conducted during the today's visit to the emergency room and has verbalized understanding of the results I have personally reviewed and inte rpreted all diagnostic exams performed here in the ER today as well as the vital signs documented by the nursing staff. The patient is now being discharged to home and should follow up with the primary care physician or the specialist as directed by the ER staff. Follow-up with primary care provider in 1 to 2 days. Take medications as directed here in the emergency room. Okay to continue home medications unless otherwise discussed during your visit in the emergency room today. Return to your nearest emergency room if symptoms worsen or if there is no improvement. Call 911 if you need immediate assistance. Take Tylenol or Motrin [id number] as needed and if no contraindications are present. Increase oral hydration. A wound culture or urine culture was ordered here in the emergency room department please follow-up with primary care provider and advise them to get repeat ports from our facility. If you had any Tobin wrap/splints that were applied here, please do not remove them until you see your primary care or specialty. Patient must not take metoclopramide/Reglan and Phenergan/promethazine together Referrals: SHELLEY BEAN MD (PCP) AIDAN COCHRAN MD May 20, 2025 00:57
--- NOTE | 2025-05-20 01:02 | NUR ---
ASSUMED PT CARE
[2025-05-20] MEDS: 0.9%NACL 1000ML 1,000 ML IV ONE (01:17)
[2025-05-20 01:24] LABS: IMMATURE GRANULOCYTE ABSOLUTE 0.02 K/uL (0-1); NUCLEATED RED BLOOD CELLS 0.0 % (0.0-0.19); PLATELET COUNT (AUTO) 59 K/uL (130-400); RED BLOOD CELL COUNT(AUTO) 3.11 MIL/uL (4.00-5.50); RED CELL DISTRIBUTION WIDTH 13.9 % (11.0-15.5); WHITE BLOOD COUNT (AUTO) 4.3 K/uL (4.8-10.8)
[2025-05-20 01:37] LABS: CREATININE 2.1 mg/dL (0.5-1.0); GLOMERULAR FILTR. RATE CALC 26.0 mL/min (>90); GLUCOSE,RANDOM 203.0 mg/dL (70-105); SODIUM SERUM 137.0 mmol/L (136-145); UREA NITROGEN, BLOOD 28.0 mg/dL (7-18)
[2025-05-20 01:38] LABS: APPEARANCE,URINE CLEAR (CLEAR); GLUCOSE, URINE (UA) >=1000 mg/dL (NEGATIVE); LEUKOCYTE ESTERASE ,URINE NEGATIVE Leu/uL (NEGATIVE); NITRATE,URINE NEGATIVE (NEGATIVE); OCCULT BLOOD,URINE NEGATIVE (NEGATIVE)
[2025-05-20 01:39] LABS: ADD UA MICROSCOPIC YES
[2025-05-20 01:40] LABS: SQUAMOUS EPITHELIAL CELL,UR FEW /HPF (0-2)
--- NOTE | 2025-05-20 03:23 | HMCIMG ---
EXAM: CT Abdomen and Pelvis without IV contrast CLINICAL HISTORY: Cirrhosis. Nausea. Vomiting. Questionable colitis or diverticulitis. TECHNIQUE: Thin collimated axial CT images of the abdomen and pelvis were obtained, with sagittal and coronal reformatted images also submitted. A CT scan is done according to ALARA (As Low As Reasonably Achievable). CONTRAST: None. COMPARISON: CT abdomen and pelvis dated 09/17/2024. FINDINGS: The included lungs are clear. Volume redistribution of the liver with a lobulated nodular hepatic contour, compatible with liver cirrhosis. There are surgical clips in the gallbladder, compatible with postcholecystectomy status. There are two peripherally calcified lesions are present within the gallbladder fossa, measuring about 1.7 cm to 1.8 cm, could be residual gallstones. Mild splenomegaly. There are a few of splenunculus anterior to the spleen. No focal abnormality within the pancreas or adrenals. There is a punctate cortical calcification around the right renal midpole. The urinary bladder is suboptimally distended and grossly unremarkable. Unremarkable uterus. There are multiple cysts in the bilateral ovaries, the largest measures up to 4 cm on the left side. No obvious bowel wall thickening, dilatation, or obstruction. Unremarkable appendix. A component of mild constipation is present in the colon. Mild calcific atherosclerotic disease in the abdominal aorta and its branches. Portosystemic collaterals are present. No ascites or pneumoperitoneum. No pathological lymphadenopathy in the abdomen or pelvis. No acute bony abnormality is evident. Degenerative osseous changes. Cutaneous thickening around the umbilical area. IMPRESSIONS: No acute process in the abdomen or pelvis. No acute colitis or diverticulitis. Liver cirrhosis. Mild splenomegaly. Mild portosystemic collaterals. Status postcholecystectomy. Questionable residual gallstones around the gallbladder fossa. Bilateral ovarian cysts. Recommend ultrasound of the pelvis for further evaluation. A component of mild constipation is present in the colon. Compared to the prior study, there is no significant interval change. /[place]
--- NOTE | 2025-05-20 03:36 | NUR ---
PATIENT'S DAUGHTER IN VERY ANXIOUS ABOUT THE WAITING TIME. EXPLAINED TO HER THAT IT IS A INDEED A BUSY NIGHT. SHE VERBALIZES PLANNING TO ABSCOND IF BY 6AM PATIENT STILL IN THE ER SHE HAS AN APPOINMENT AT 7.15, CHRISTOPHER BROWN
[2025-05-20] MEDS ORDERED: PROM50TA3 PO (03:43)
[2025-05-20] MEDS: PROCHLORPERAZINE 10MG/2ML INJ IV ONE (04:04)
[2025-05-20 04:14] VITALS: BP 132/62; PULSE 85; RESP 18; TEMP 98.4; O2SAT 85
== END 2025-05-20 04:12 | disposition home or self-care (01) ==
LOC: EDH 00:38
DX: I12.9 Hypertensive chronic kidney disease with stage 1 through stage 4 chronic kidney disease, or unspecified chronic kidney disease (principal); E11.22 Type 2 diabetes mellitus with diabetic chronic kidney disease; N18.9 Chronic kidney disease, unspecified; R11.2 Nausea with vomiting, unspecified; K74.60 Unspecified cirrhosis of liver; Z79.4 Long term (current) use of insulin; Z79.84 Long term (current) use of oral hypoglycemic drugs; Z79.85 Long-term (current) use of injectable non-insulin antidiabetic drugs; Z79.899 Other long term (current) drug therapy; Z96.619 Presence of unspecified artificial shoulder joint
CPT/HCPCS: 99285; 74176; 96374; 96375; 80048; 85025; 81001; 36415; J0780; J2405

== ENCOUNTER → 2025-06-10 | Outpatient (CLI) | payer MEDICARE, MEDICAID ==
[~2025-06-10] MED LIST changes: +PROM50TA3 PO
[2025-06-10 10:15] LABS: % IRON SATURATION 49.8 % (22-44); IRON, SERUM 126.0 mcg/dL (50-170)
[2025-06-10 10:28] LABS: ASPARTATE AMINOTRANSFERASE 47 U/L (10-37); CREATININE 1.4 mg/dL (0.5-1.0); GLOMERULAR FILTR. RATE CALC 42 mL/min (>90); GLUCOSE,RANDOM 157 mg/dL (70-105); SODIUM SERUM 144 mmol/L (136-145); TOTAL PROTEIN, SERUM 5.7 g/dL (6.0-8.3); UREA NITROGEN, BLOOD 19 mg/dL (7-18)
== END | disposition home or self-care (01) ==
LOC: LAB 09:04
PROVIDERS: ATTEND Internal Medicine Gastroenterology
DX: I12.9 Hypertensive chronic kidney disease with stage 1 through stage 4 chronic kidney disease, or unspecified chronic kidney disease (principal); N18.9 Chronic kidney disease, unspecified; E11.22 Type 2 diabetes mellitus with diabetic chronic kidney disease; R53.83 Other fatigue; R11.0 Nausea; R93.2 Abnormal findings on diagnostic imaging of liver and biliary tract; R10.13 Epigastric pain; I85.00 Esophageal varices without bleeding; K74.69 Other cirrhosis of liver; E66.9 Obesity, unspecified; K76.82 Hepatic encephalopathy; N39.0 Urinary tract infection, site not specified; D50.9 Iron deficiency anemia, unspecified; Z79.899 Other long term (current) drug therapy
CPT/HCPCS: 36415; 80053; 82306; 82607; 82728; 82746; 83540; 83550

== ENCOUNTER → 2025-06-16 | Outpatient (CLI) | payer MEDICARE ==
--- NOTE | 2025-06-17 18:25 | HMCIMG ---
EXAM: MAGNETIC RESONANCE CHOLANGIOPANCREATOGRAPHY OF THE ABDOMEN WITHOUT INTRAVENOUS CONTRAST Technique: Multiplanar, multisequence magnetic resonance imaging of the abdomen was performed without intravenous contrast, including heavily T2-weighted two-dimensional and three-dimensional magnetic resonance cholangiopancreatography sequences with maximum intensity projection reconstructions. Axial and coronal T1-weighted and T2-weighted sequences of the upper abdomen were obtained. Image quality is diagnostic. Clinical Information: Abnormal findings on prior imaging of the liver and biliary tract. Comparison: Computed tomography of the abdomen and pelvis without contrast dated May 20, 2025 at 02:15 [place] Daylight Time. Findings: Study limited by patient motion. Liver measures approximately 14 centimeters in craniocaudal span and demonstrates diffuse signal characteristics compatible with hepatic steatosis. Liver surface shows mild nodularity suggestive of cirrhotic morphology, unchanged from the prior computed tomography examination. No discrete hepatic mass is identified within the limits of noncontrast magnetic resonance cholangiopancreatography sequences. Bile ducts are not dilated; intrahepatic bile ducts are of normal caliber. Common bile duct measures approximately 6 millimeters in maximal diameter without intraluminal filling defect visualized. Gallbladder is not separately visualized. Two signal void foci measuring approximately 1.7 centimeters and 1.8 centimeters are present in the gallbladder fossa, compatible with calculi, which may reflect residual or dropped stones or calculi within a cystic duct remnant; appearance is stable compared with prior computed tomography. Spleen measures approximately 14.3 centimeters with several tiny accessory spleens noted. Pancreas demonstrates preserved size and signal without focal lesion. Main pancreatic duct measures approximately 0.7 millimeters in diameter. Adrenal glands are normal in morphology and signal. Visualized stomach and bowel loops are unremarkable within the limits of this study. No ascites is identified. Visualized lung bases are clear. Degenerative changes are present in the visualized spine. Impression: * Hepatic steatosis with mild nodular liver contour suggestive of cirrhotic morphology, unchanged from May 20, 2025. No focal hepatic mass identified on noncontrast magnetic resonance cholangiopancreatography sequences. * Biliary tree without obstruction: intrahepatic bile ducts are normal in caliber, common bile duct approximately 6 millimeters, and main pancreatic duct approximately 0.7 millimeters without visualized intraductal filling defect. * Gallbladder not separately visualized with two calculi in the gallbladder fossa (approximately 1.7 and 1.8 centimeters), stable from prior computed tomography; findings may represent dropped stones or calculi within a cystic duct remnant. * Splenomegaly with adjacent splenules. * No ascites or other acute intra-abdominal abnormality identified. /[place]
== END | disposition home or self-care (01) ==
LOC: RAH 07:23
PROVIDERS: ATTEND Internal Medicine Gastroenterology
DX: K76.0 Fatty (change of) liver, not elsewhere classified (principal); M47.816 Spondylosis without myelopathy or radiculopathy, lumbar region; K76.89 Other specified diseases of liver; R93.2 Abnormal findings on diagnostic imaging of liver and biliary tract
CPT/HCPCS: 74181